=== PATIENT | female | born 1960 | race Caucasian/White ===

== ENCOUNTER → 2020-05-18 07:22 | Outpatient (BNVA) | payer BC, SELFPAY | PROVIDERS: PCP Internal Medicine; Referring Provider Internal Medicine; Visit Provider Internal Medicine Endocrinology, Diabetes & Metabolism | DX: Z76.89 Persons encountering health services in other specified circumstances (principal) ==

== ENCOUNTER 2020-05-23 06:33 | Outpatient (REF) | payer BC, SELFPAY ==
--- NOTE | 2020-05-23 06:56 | CT_ITS ---
EXAMINATION: CT CHEST SCREENING CLINICAL INFORMATION: Lung cancer screening COMPARISON: October 2019 and [address] TECHNIQUE: Multidetector volumetric CT imaging of the chest is performed without contrast using low dose technique. Additional 2D coronal and sagittal reformatted images and axial 3D maximum intensity projection (MIP) images are generated on the CT workstation. This CT examination was performed using dose optimization techniques as appropriate, variously including the following: *Automated exposure control *Adjustment of mA and/or kV according to patient size (this includes techniques or standardized protocols for targeted exams where dose is matched to indication/reason for exam; i.e. extremities or head) *Use of iterative reconstruction technique DLP: 54 mGy-cm FINDINGS: LUNGS: There is a 3 mm heterogeneous or semisolid right apical right upper lobe nodule axial image 68 series 5. There is a 2 mm superior segment right lower lobe nodule axial image 176 series 5. These nodules are stable. There is a 7 x 8 mm superior segment left lower lobe nodule axial image 184 series 5. This does not appear appreciably changed from most recent exam October 2019 however may be minimally increased in size from 6 x 7 mm on March 2019. No new pulmonary nodules are seen. There is no endobronchial or endotracheal lesion. MEDIASTINUM: There is a small posterior mediastinal paraesophageal calcification probably representing a small calcified lymph node. This is definitely new from March 2019 exam and may be more apparent compared to October 2019 exam. The mediastinum is otherwise normal. PLEURA: There is no pleural effusion. No pleural mass or thickening. AXILLA: No lymphadenopathy. UPPER ABDOMEN: The gallbladder has been removed. There are surgical clips adjacent to the spleen. OSSEOUS STRUCTURES: Unremarkable. CT/CT lung screen follow up IMPRESSION: Stable pulmonary nodules from October 2019. ASSESSMENT: Lung-RADS category 2: Benign RECOMMENDATION: Annual low-dose chest CT follow-up recommended.
[2020-05-23 08:13] LABS: Alanine Aminotransferase 10 U/L (0-31); Albumin Level 4.2 g/dL (3.5-5.0); Alkaline Phosphatase 84 U/L (39-117); Anion Gap 13 (12-20); Aspartate Amino Transferase 10 U/L (5-31); Bilirubin Total 0.4 mg/dL (0.0-1.0); Blood Urea Nitrogen 14 mg/dL (9-16); Calcium 8.5 mg/dL (8.4-10.2); Carbon Dioxide 28 mmol/L (22-29); Chloride 104 mmol/L (96-108); Estimated Glomerular Filt Rate > 60; Glucose Fasting 98 mg/dL (60-99); Potassium 4.3 mmol/l (3.3-5.1); Sodium 141 mmol/L (135-145); Total Protein 6.7 g/dL (6.5-8.0)
== END 2020-05-23 06:34 | disposition home or self-care (01) ==
LOC: HO.CT 06:33
PROVIDERS: PCP Internal Medicine; Referring Provider Internal Medicine Endocrinology, Diabetes & Metabolism; Visit Provider Surgery
DX: Z12.2 Encounter for screening for malignant neoplasm of respiratory organs (principal); M81.0 Age-related osteoporosis without current pathological fracture; Z87.891 Personal history of nicotine dependence
CPT/HCPCS: 71250; 80053; 82306

== ENCOUNTER 2020-10-11 08:41 | Outpatient (REF) | payer BC, SELFPAY ==
[2020-10-14 00:36] LABS: HPV mRNA E6/E7 rflx Not Detected (Not Detected)
== END 2020-10-11 08:42 | disposition home or self-care (01) ==
LOC: HO.LAB 08:41
PROVIDERS: PCP Internal Medicine; Visit Provider Advanced Practice Midwife
DX: Z01.419 Encounter for gynecological examination (general) (routine) without abnormal findings (principal); E66.9 Obesity, unspecified; Z79.899 Other long term (current) drug therapy; Z87.891 Personal history of nicotine dependence
CPT/HCPCS: 36415; 87624; 88142

== ENCOUNTER 2020-11-07 09:18 | Outpatient (REF) | payer BC, SELFPAY ==
[2020-11-07 12:14] LABS: Cholesterol 205 mg/dL; HDL Cholesterol 59 mg/dL; LDL Cholesterol Calculated 126 mg/dl; Triglycerides 100 mg/dL
[2020-11-07 12:20] LABS: Alanine Aminotransferase 13 U/L (0-31); Albumin Level 4.2 g/dL (3.5-5.0); Alkaline Phosphatase 75 U/L (39-117); Anion Gap 12 (12-20); Aspartate Amino Transferase 11 U/L (5-31); Bilirubin Total 0.6 mg/dL (0.0-1.0); Blood Urea Nitrogen 14 mg/dL (9-16); Carbon Dioxide 29 mmol/L (22-29); Chloride 105 mmol/L (96-108); Estimated Glomerular Filt Rate > 60; Glucose Fasting 99 mg/dL (60-99); Potassium 4.2 mmol/L (3.3-5.1); Sodium 142 mmol/L (135-145); Total Protein 6.9 g/dL (6.5-8.0)
[2020-11-07 12:28] LABS: Vitamin D 25-OH Total 53.4 ng/mL (>30)
[2020-11-12 17:52] LABS: N-Telopeptide 13 (see note); NTXCreaRU 104 mg/dL (20-275)
== END 2020-11-07 09:19 | disposition home or self-care (01) ==
LOC: HO.HMGCLDS 09:18
PROVIDERS: PCP Internal Medicine; Visit Provider Internal Medicine Endocrinology, Diabetes & Metabolism
DX: Z00.01 Encounter for general adult medical examination with abnormal findings (principal); I10 Essential (primary) hypertension; M81.0 Age-related osteoporosis without current pathological fracture
CPT/HCPCS: 36415; 80053; 80061; 82306; 82523

== ENCOUNTER → 2020-11-16 09:33 | Outpatient (BNVA) | payer BC, SELFPAY | PROVIDERS: PCP Internal Medicine; Visit Provider Internal Medicine Endocrinology, Diabetes & Metabolism ==

== ENCOUNTER 2020-11-22 07:14 | Outpatient (REF) | payer BC, SELFPAY ==
[2020-11-30 12:44] LABS: Dexamethasone 163 ng/dL
== END 2020-11-22 07:15 | disposition home or self-care (01) ==
LOC: HO.HMGCLDS 07:14
PROVIDERS: PCP Internal Medicine; Visit Provider Internal Medicine Endocrinology, Diabetes & Metabolism
DX: D35.02 Benign neoplasm of left adrenal gland (principal)
CPT/HCPCS: 36415; 80299; 82533

== ENCOUNTER 2021-02-23 12:35 | Outpatient (REF) | payer BC, SELFPAY ==
--- NOTE | ~2021-02-23 | MM_ITS ---
EXAMINATION: MM SCREENING DIGITAL BREAST TOMOSYNTHESIS, BILATERAL CLINICAL INFORMATION: Screening. Asymptomatic. The lifetime risk of breast cancer based on the Tyrer-Cuzick Model is 8%. COMPARISON: Mammography: 04/07/2019, 05/18/2015 TECHNIQUE: Digital breast tomosynthesis is performed in both the craniocaudal and mediolateral oblique views along with computer-aided detection (CAD). Synthesized 2D images are generated from the tomosynthesis. FINDINGS: The breasts are almost entirely fatty (ACR BI-RADS breast composition Category a). Background stromal markings are similar to prior studies. There is no significant mass or architectural abnormality or developing density. No abnormal calcifications. The axilla and skin contours are unremarkable. MM/MM tomosynthesis screening BI IMPRESSION: No mammographic evidence of malignancy. ASSESSMENT: BI-RADS 1: Negative RECOMMENDATION: Routine annual mammography screening. This patient's information was entered into a reminder system with a target due date for their next mammogram.
== END 2021-02-23 12:36 | disposition home or self-care (01) ==
LOC: HO.MAMMO 12:35
PROVIDERS: Visit Provider Internal Medicine
DX: Z12.31 Encounter for screening mammogram for malignant neoplasm of breast (principal)
CPT/HCPCS: 77063; 77067

== ENCOUNTER 2021-04-11 08:41 | Outpatient (REF) | payer BC, SELFPAY ==
--- NOTE | ~2021-04-11 | MM_ITS ---
EXAMINATION: BONE DENSITOMETRY CLINICAL INDICATION: Age-related osteoporosis without current pathological fracture. COMPARISON: Baseline BD dated 04/07/2019. TECHNIQUE: Using a [employer] DXA System (software version: 13.1) manufactured by [employer], dual-energy x-ray absorptiometry was performed of the lumbar spine and left hip. The images are of good technical quality. Summary results are attached. FINDINGS: AP SPINE L1-L4: Current: BMD 1.048 g/cm2, Z-score -0.2, T-score -1.1, osteopenia, 1.8% increase from baseline (<5% change is not significant). Baseline: BMD 1.029 g/cm2. LEFT FEMUR, NECK: Current: BMD 0.723 g/cm2, Z-score -1.3, T-score -2.3, osteopenia. Baseline: BMD 0.685 g/cm2. LEFT FEMUR, TOTAL: Current: BMD 0.805 g/cm2, Z-score -0.9, T-score -1.6, osteopenia, 6.9% increase from baseline (<5% change is not significant). Baseline: BMD 0.753 g/cm2. IDENTIFIED RISK FACTORS: Menopause. HISTORY OF FRACTURE: None listed. MEDICATIONS: Calcium supplements or multivitamin, vitamin D, bisphosphonates. MM/XR DEXA axial skeleton IMPRESSION: 1. DIAGNOSIS: Osteopenia based on the lowest T-score value of -2.3 in the femoral neck applying World Health Organization criteria. 2. 10-YEAR FRACTURE RISK PREDICTION, FRAX: Major osteoporotic fracture (clinical spine, forearm, hip or shoulder) 11.0%. Hip fracture 1.8%. 3. Treatment Recommendations: NOF guidelines recommend consideration for treatment in postmenopausal women and men age 50 and older presenting with the following: -A hip or vertebral (clinical or morphometric) fracture. -T-score less than or equal to -2.5 at the femoral neck or spine after appropriate evaluation to exclude secondary causes. -Low bone mass at the hip or spine and a 10-year fracture probability by FRAX of greater than or equal to 3% for hip fracture or greater than or equal to 20% for major osteoporotic fracture based on the [place] adapted WHO algorithm. 4. Other Recommendations: All treatment decisions require clinical judgment and consideration of individual patient factors, including patient preferences, comorbidities, previous drug use, risk factors not captured in the FRAX model (e.g. frailty, falls, vitamin D deficiency, increased bone turnover, interval significant decline in bone density) and possible under or overestimation of fracture risk by FRAX. Additional medical evaluation for secondary cause of low bone mineral density may be appropriate. FUTURE SCAN RECOMMENDATION: People with diagnosed cases of osteoporosis or at high risk for fracture should have regular bone mineral density tests. For patients eligible for Medicare, routine testing is allowed once every 2 years. The testing frequency can be increased to one year for patients who have rapidly progressing disease, those who are receiving or discontinuing medical therapy to restore bone mass, or have additional risk factors.
== END 2021-04-11 08:42 | disposition home or self-care (01) ==
LOC: HO.MAMMO 08:41
PROVIDERS: Visit Provider Internal Medicine
DX: Z13.820 Encounter for screening for osteoporosis (principal); M81.0 Age-related osteoporosis without current pathological fracture; M85.80 Other specified disorders of bone density and structure, unspecified site; Z78.0 Asymptomatic menopausal state; Z79.899 Other long term (current) drug therapy
CPT/HCPCS: 77080

== ENCOUNTER 2021-05-19 11:32 | Emergency (ER) | payer BC, SELFPAY ==
[2021-05-19 11:41] VITALS: BP 170/95; BP 171/94; PULSE 57; PULSE 61; RESP 18; TEMP 36.6; O2SAT 100; O2SAT 98; BMI 30.9
--- NOTE | 2021-05-19 11:53 | ED_ITS ---
HPI - Weakness General Chief complaint: Nausea/Vomiting/Diarrhea Stated complaint: nausea, dizzy Time Seen by Provider: 05/19/21 11:53 Source: patient Mode of arrival: ambulatory Limitations: no limitations History of Present Illness HPI Narrative: Patient with diarrhea from IBS for the past few days, today patient feeling more weak than usual. [place] lightheaded and had a headache. Patient feeling nauseated. MD Complaint: generalized weakness Onset (ago): hour(s) Duration: constant Location: generalized Severity: moderate Related Data Home Medications Medication Instructions Recorded Confirmed flu vacc [id number] 6mos up(PF) ml IM 05/16/20 11/16/20 mecobalamin (vitamin B12) 1,000 1,000 mcg PO DAILY 05/18/20 11/16/20 mcg chewable tablet vitamin E 200 unit capsule 200 unit PO BID 09/12/20 11/16/20 Previous Rx's Medication Instructions Recorded hydrocortisone-pramoxine 2.5 %-1 % See Rx Instructions .ROUTE 09/12/20 (4g) rectal cream .COMPLEX 10 Days #4 g metoprolol succinate 25 mg 25 mg PO BEDTIME #90 tab 10/03/20 tablet,extended release 24 hr alendronate 70 mg tablet 70 mg PO QWEEK 90 Days #13 tab 11/16/20 calcium citrate 315 mg-vitamin D3 2 tab PO BID 90 Days #360 tab 11/16/20 5 mcg (200 unit) tablet dexamethasone 1 mg tablet 1 mg PO ONCE 1 Days #1 tab 11/30/20 dicyclomine 20 mg tablet 20 mg PO BID #60 tab 12/29/20 bupropion HCl 150 mg 24 hr tablet, 150 mg PO QAM #90 tab 01/02/21 extended release lisinopril 10 mg tablet 10 mg PO DAILY #90 tab 03/29/21 ondansetron HCl 4 mg tablet 4 mg PO Q8H PRN #10 tab 05/19/21 (Zofran) Allergies Allergy/AdvReac Type Severity Reaction Status Date / Time morphine [MORPHINE] Allergy Intermediate HIVES, Verified 11/16/20 09:49 itchy Sulfa (Sulfonamide Allergy Intermediate HIVES Verified 11/16/20 09:49 Antibiotics) [SULFA (SULFONAMIDE ANTIBIOTICS)] oxycodone [From PERCODAN] AdvReac Severe DIAPHORESIS, Verified 11/16/20 09:49 PASSED OUT chantix AdvReac Unknown weird Verified 11/16/20 09:49 jim nausea Review of Systems Neurologic: Denies Sensory deficit (Neuro) [facility] Past Medical History Medical History Adenoma of left adrenal gland Barretts esophagus Capsulitis of left foot Degenerative disc disease Depression Essential hypertension External hemorrhoids GERD (gastroesophageal reflux disease) IBS (irritable bowel syndrome) IFG (impaired fasting glucose) Lung nodule < 6cm on CT Corrigan's neuroma of left foot Obesity (BMI 30-39.9) Osteoporosis Vitamin D deficiency Surgical History Abdominal hernia History of excision of pilonidal cyst History of laparoscopic cholecystectomy History of left knee surgery History of sinus surgery Family History Family History Father No problems noted. Mother HTN (hypertension) History of cataract Maternal Grandmother Cervical cancer Maternal Grandfather History of heart attack Brother No problems noted. Brother No problems noted. Brother No problems noted. Sister No problems noted. Social History Social History Advance Directives: Yes Advance Directives Information Provided: Yes Advance Directives on File: No Physical Exam Vital Signs: Vital Signs: Last Vital Signs Temp 98.2 F 05/19/21 16:22 Pulse 64 05/19/21 16:22 Resp 19 05/19/21 16:22 BP 127/62 05/19/21 16:22 Pulse Ox 97 05/19/21 16:22 Body Mass Index 30.9 Const: Other: female moaning with nausea appearing weak Nutritional Appearance: average body habitus Orientation/consciousness: oriented to person and patient oriented x3 Limitations: no limitations HENMT: Head: Yes normal to inspection Ears: external ears normal General nose exam: Normal external nose present Mouth: Normal oral and palatal mucosa present and oropharynx normal Throat: Yes posterior oropharynx normal Eyes: General: appearance normal, both eyes and all related structures Neck: Other: supple Neck: Yes normal visual inspection Chest: Chest palpation & inspection: normal inspection of the chest Resp: Auscultation: clear to auscultation bilaterally Cardio: Jugular venous distension: no JVD Rate: regular rate Rhythm: regular rhythm Heart sounds: S1 normal heart sound present and S2 normal heart sound present GI: Inspection: Yes normal to inspection Palpation (GI): Soft to palpation, nontender and No hepatosplenomegaly present Auscultation: normal bowel sounds : General: Yes no CVA tenderness Back/Spine/Pelvis: Back: no CVA tenderness Skin: General skin exam: no rashes or lesions noted Neuro: General: oriented to person and patient oriented x3 Cranial nerves: Yes CN's II-XII intact bilaterally Motor exam (neuro): 5/5 motor strength present throughout Sensory Exam: No Sensory deficit (Neuro) Extrem: General: Yes normal to inspection Psych: Appearance: grossly normal Course Reevaluation(s) Reevaluation #1: tolerating po, feeling better, will dc on zofran Time: 16:52 MDM - Weakness Lab Data Result diagrams: 05/19/21 12:09 05/19/21 12:44 Labs: Lab Results 05/19/21 05/19/21 05/19/21 Range/Units 12:09 12:44 13:50 WBC 7.0 (4.8-10.8) X10*3/uL RBC 4.41 (4.20-5.50) X10*6/uL Hgb 12.8 (12.0-16.0) g/dl Hct 40.9 (37-47) % MCV 92.7 (80-98) fL MCH 29.0 (27.0-33.0) pg MCHC 31.3 (31.0-35.0) g/dl RDW 19.7 H (11.0-16.0) % Plt Count 197 (160-400) X10*3/uL MPV 11.3 (9.4-12.3) fL Immature Gran % (Auto) 0.3 (0.0-0.4) % Neut % (Auto) 71.1 (45-73) % Lymph % (Auto) 20.9 (20-40) % Hill % (Auto) 5.5 (2-11) % Eos % (Auto) 1.6 (0-4) % Baso % (Auto) 0.6 (0-2) % Lymph # (Auto) 1.5 (1.2-4.9) X10*3/uL [place] # (Auto) 0.4 (0.1-1.2) X10*3/uL Eos # (Auto) 0.1 (0.0-0.4) X10*3/uL Baso # (Auto) 0.0 (0.0-0.2) X10*3/uL Abs Immat Gran (auto) 0.02 (0.00-0.03) X10*3/uL Absolute Neuts (auto) 5.0 (2.0-8.3) X10*3/uL Absolute Nucleated RBC 0.000 (0.0-0.012) X10*3/uL Nucleated RBC % (auto) 0.0 (0.0-0.2) /100WBC Sodium 141 (135-145) mmol/L Potassium 4.1 (3.3-5.1) mmol/L Chloride 110 H (96-108) mmol/L Carbon Dioxide 26 (22-29) mmol/L Anion Gap 9 L (12-20) BUN 11 (9-16) mg/dL Creatinine 0.72 (0.5-1.4) mg/dL Estim Creat Clear Calc 83.7 Estimated GFR > 60 Random Glucose 109 (60-115) mg/dL Calcium 8.1 L D (8.4-10.2) mg/dL Total Bilirubin 0.3 (0.0-1.0) mg/dL Direct Bilirubin < 0.2 (0.0-0.5) mg/dL AST 14 (5-31) U/L ALT 15 (0-31) U/L Alkaline Phosphatase 74 (39-117) U/L Total Protein 6.3 L (6.5-8.0) g/dL Albumin 3.9 (3.5-5.0) g/dL Lipase 9 (8-78) U/L Urine Color YELLOW Urine Appearance HAZY Urine pH 6.5 (5.0-8.0) Ur Specific [place] 1.015 (1.005-1.025) Urine Protein NEG (NEG-TRACE) MG/DL Urine Glucose (UA) NEG (NEG) MG/DL Urine Ketones NEG (NEG) MG/DL Urine Blood NEG (NEG) Urine Nitrite NEG (NEG) Ur Leukocyte Esterase 1+ H (NEG) Urine RBC 1-4 (0) /HPF Urine WBC 5-9 H (0-4) /HPF Ur Squamous Epith Cells 1+ /LPF Urine Bacteria 1+ /LPF Urine Mucus TRACE /LPF Discharge Plan Discharge Clinical Impression: IBS (irritable bowel syndrome) Qualifiers: Irritable bowel syndrome type: with diarrhea Qualified Code(s): K58.0 - Irritable bowel syndrome with diarrhea Vomiting Qualifiers: Vomiting type: unspecified Vomiting Intractability: non-intractable Nausea presence: with nausea Qualified Code(s): R11.2 - Nausea with vomiting, unspecified Patient Disposition: Home, Self-Care Instructions: Irritable Bowel Syndrome (ED), Acute Nausea and Vomiting (ED) Prescriptions: New ondansetron HCl [Zofran] 4 mg tablet 4 mg PO Q8H PRN (Reason: nausea and vomiting) Qty: 10 RF: 0 No Action metoprolol succinate 25 mg tablet extended release 24 hr 25 mg PO BEDTIME Qty: 90 RF: 2 dexamethasone 1 mg tablet 1 mg PO ONCE 1 Days Qty: 1 RF: 0 dicyclomine 20 mg tablet 20 mg PO BID Qty: 60 RF: 2 bupropion HCl 150 mg tablet extended release 24 hr 150 mg PO QAM Qty: 90 RF: 1 lisinopril 10 mg tablet 10 mg PO DAILY Qty: 90 RF: 2 Fluzone Quad 3400-2712 (PF) 60 mcg (15 mcg x 4)/0.5 mL syringe IM RF: 0 vitamin E 200 unit capsule 200 unit PO BID RF: 0 hydrocortisone-pramoxine 2.5-1 % (4g) cream See Rx Instructions .ROUTE .COMPLEX 10 Days Qty: 4 RF: 1 mecobalamin (vitamin B12) 1,000 mcg tablet,chewable 1,000 mcg PO DAILY RF: 0 alendronate 70 mg tablet 70 mg PO QWEEK 90 Days Qty: 13 RF: 3 calcium citrate-vitamin D3 315 mg-5 mcg (200 unit) tablet 2 tab PO BID 90 Days Qty: 360 RF: 3 Referrals: Lizzy Cruz MD [Primary Care Provider] - 5 days
[2021-05-19] MEDS: 0.9 % Sodium Chloride 1,000 ML 999 ML IVCONT ×2 (12:09→13:38)
[2021-05-19] MEDS: Pantoprazole Sodium 40 MG/10 ML VIAL IVPUSH (12:11)
[2021-05-19 12:16] LABS: MANUAL DIFF FLAG NO
[2021-05-19 12:18] LABS: Basophils Percent Auto 0.6 % (0-2); Eosinophils Absolute Auto 0.1 X10*3/uL (0.0-0.4); Eosinophils Percent Auto 1.6 % (0-4); Hematocrit 40.9 % (37-47); Hemoglobin 12.8 g/dl (12.0-16.0); Imm Gran Abs Auto 0.02 X10*3/uL (0.00-0.03); Imm Gran Pct Auto 0.3 % (0.0-0.4); Lymphocytes Absolute Auto 1.5 X10*3/uL (1.2-4.9); Lymphocytes Percent Auto 20.9 % (20-40); Mean Corpuscular HGB Conc 31.3 g/dl (31.0-35.0); Mean Corpuscular Volume 92.7 fL (80-98); Mean Platelet Volume 11.3 fL (9.4-12.3); Monocytes Absolute Auto 0.4 X10*3/uL (0.1-1.2); Monocytes Percent Auto 5.5 % (2-11); Neutrophils Percent Auto 71.1 % (45-73); Platelet Count 197 X10*3/uL (160-400); Red Blood Count 4.41 X10*6/uL (4.20-5.50); Red Cell Distribution Width 19.7 % (11.0-16.0)
[2021-05-19 13:16] LABS: Alanine Aminotransferase 15 U/L (0-31); Albumin Level 3.9 g/dL (3.5-5.0); Alkaline Phosphatase 74 U/L (39-117); Anion Gap 9 (12-20); Aspartate Amino Transferase 14 U/L (5-31); Bilirubin Direct < 0.2 mg/dL (0.0-0.5); Bilirubin Total 0.3 mg/dL (0.0-1.0); Blood Urea Nitrogen 11 mg/dL (9-16); Calcium 8.1 mg/dL (8.4-10.2); Carbon Dioxide 26 mmol/L (22-29); Chloride 110 mmol/L (96-108); Creatinine Clr Calc Pharmacy 83.7; Estimated Glomerular Filt Rate > 60; Glucose Random 109 mg/dL (60-115); Lipase 9 U/L (8-78); Potassium 4.1 mmol/L (3.3-5.1); Sodium 141 mmol/L (135-145); Total Protein 6.3 g/dL (6.5-8.0)
[2021-05-19 13:51] VITALS: BP 155/63; PULSE 60; RESP 19; O2SAT 96
[2021-05-19 14:05] LABS: Appearance Urine HAZY; Color Urine YELLOW; Glucose Urine UA NEG (NEG); Leukocyte Esterase Urine 1+ (NEG); Nitrite Urine NEG (NEG); PH 6.5 (5.0-8.0); Specific Gravity - Urine 1.015 (1.005-1.025); UACC Culture Trigger YES; Urine Blood NEG (NEG); Urine Ketones NEG (NEG); Urine Protein NEG (NEG-TRACE)
[2021-05-19 14:20] LABS: Bacteria Urine 1+ /LPF; Mucus Urine TRACE /LPF; Squamous Epithelial Cell Urine 1+ /LPF
[2021-05-19 16:22] VITALS: BP 127/62; PULSE 64; RESP 19; TEMP 36.8; O2SAT 97
== END 2021-05-19 17:17 | disposition home or self-care (01) ==
PROVIDERS: Emergency Provider Emergency Medicine; PCP Internal Medicine
DX: K58.0 Irritable bowel syndrome with diarrhea (principal); R11.2 Nausea with vomiting, unspecified; I10 Essential (primary) hypertension
CPT/HCPCS: 36415; 80048; 80076; 81001; 83690; 85025; 87086; 96361; 96374; 96375; 99283; 99284; J2550

== ENCOUNTER 2022-03-11 22:17 | Outpatient (REF) | payer BC, SELFPAY ==
[2022-03-18 19:51] LABS: Saliva Cortisol <0.03 mcg/dL
== END 2022-03-11 22:18 | disposition home or self-care (01) ==
LOC: HO.LNP 22:17
PROVIDERS: Visit Provider Internal Medicine Endocrinology, Diabetes & Metabolism
DX: D35.02 Benign neoplasm of left adrenal gland (principal)
CPT/HCPCS: 82530

== ENCOUNTER 2022-03-12 06:29 | Outpatient (REF) | payer BC, SELFPAY ==
[2022-03-13 15:22] LABS: Adrenocorticotropic Hormone 20 pg/mL (6-50)
[2022-03-16 13:12] LABS: Metanephrine, Free <25 pg/mL (<=57); Normetanephrines, Free 73 pg/mL (<=148); Total Metanephrine, Free 73 pg/mL (<=205)
== END 2022-03-12 06:30 | disposition home or self-care (01) ==
LOC: HO.LAB 06:29
PROVIDERS: PCP Internal Medicine; Visit Provider Internal Medicine Endocrinology, Diabetes & Metabolism
DX: D35.02 Benign neoplasm of left adrenal gland (principal)
CPT/HCPCS: 82024; 82088; 83835; 84244

== ENCOUNTER → 2022-06-19 12:12 | Outpatient (BNVA) | payer BC, SELFPAY | PROVIDERS: PCP Internal Medicine; Visit Provider Dietitian, Registered | DX: E66.9 Obesity, unspecified (principal) | CPT/HCPCS: 97802 ==

== ENCOUNTER 2022-07-09 14:28 | Outpatient (REF) | payer BC, SELFPAY | END 2022-07-09 14:29 | disposition home or self-care (01) | LOC: HO.HMGCX 14:28 | PROVIDERS: PCP Internal Medicine; Visit Provider Internal Medicine | DX: J32.0 Chronic maxillary sinusitis (principal) | CPT/HCPCS: 70220 ==

== ENCOUNTER 2022-10-08 12:03 | Outpatient (REF) | payer BC, SELFPAY ==
--- NOTE | ~2022-10-08 | MM_ITS ---
EXAMINATION: MM SCREENING DIGITAL BREAST TOMOSYNTHESIS, BILATERAL CLINICAL INFORMATION: Screening. Asymptomatic. The lifetime risk of breast cancer based on the Tyrer-Cuzick Model is 7%. COMPARISON: Mammography: 02/23/2021, 04/07/2019, 05/10/2015 TECHNIQUE: Digital breast tomosynthesis is performed in both the craniocaudal and mediolateral oblique views along with computer-aided detection (CAD). Synthesized 2D images are generated from the tomosynthesis. FINDINGS: The breasts are almost entirely fatty (ACR BI-RADS breast composition Category a). There are no significant masses, abnormal calcifications, or other abnormalities. The stromal markings are normal. No developing density or architectural abnormality. The axilla and skin contours are unremarkable. MM/MM tomosynthesis screening BI IMPRESSION: No mammographic evidence of malignancy. ASSESSMENT: BI-RADS 1: Negative RECOMMENDATION: Routine annual mammography screening. This patient's information was entered into a reminder system with a target due date for their next mammogram.
== END 2022-10-08 12:04 | disposition home or self-care (01) ==
LOC: HO.MAMMO 12:03
PROVIDERS: PCP Internal Medicine; Visit Provider Internal Medicine
DX: Z12.31 Encounter for screening mammogram for malignant neoplasm of breast (principal)
CPT/HCPCS: 77063; 77067

== ENCOUNTER 2023-03-12 12:24 | Outpatient (AMB) | payer BC, SELFPAY ==
--- NOTE | 2023-03-12 12:34 | A.OFFPC_ITS ---
Vital Signs 03/12/23 12:35 Height 5 ft 3.5 in BMI Reason not done Patient refused/unable BP 130/74 Blood Pressure Location Rt brachial Position Sitting Pulse 68 Pulse Source Pulse Oximeter Pulse Oximetry (%) 98 Intake Visit Reasons: Annual PE Intake Note: pt is here for physical exam Allergies morphine [MORPHINE] Allergy (Intermediate, Verified 07/02/24 08:58) HIVES, itchy Sulfa (Sulfonamide Antibiotics) [SULFA (SULFONAMIDE ANTIBIOTICS)] Allergy (Intermediate, Verified 07/02/24 08:58) HIVES oxycodone [From PERCODAN] Adverse Reaction (Severe, Verified 07/02/24 08:58) DIAPHORESIS, PASSED OUT chantix Adverse Reaction (Unknown, Verified 07/02/24 08:58) edna fernandez nausea adhesive tape Adverse Reaction (Verified 07/02/24 08:58) skin tear Medication List - Last Reconciled 03/12/23 by Lizzy Cruz MD calcium citrate-vitamin D3 315 mg-5 mcg (200 unit) 2 tabs PO BID 90 days hydrocortisone-pramoxine 2.5-1 % (4g) Apply to rectal area once a day; 10 days lisinopril 10 mg PO DAILY mecobalamin (vitamin B12) 1,000 mcg PO DAILY metoprolol succinate ER 25 mg PO BEDTIME tizanidine 4 mg PO .QD PRN Tobacco use date assessed: 03/12/23 HPI Annual PE HPI Details 62-year-old lady with hypertension, oste oporosis, here today for physical exam. She is up-to-date with her screening mammogram done earlier this year, and had a bone density scan done ordered by Dr. Walker in 2020. Currently taking only calcium and plus vitamin-D 3 supplements . Blood pressure stable controlled on lisinopril and metoprolol.. Overdue for her cervical cancer screening but patient declines exam or getting Pap smears [facility] Medical History (Updated 07/05/24 @ 17:24 by Lizzy Cruz MD) Cervical cancer screening declined Allergic rhinitis Bilateral ankle pain History of ETT HTN (hypertension) Osteopenia Arthritis Hx of osteoporosis Bilateral temporomandibular joint disorder Dysfunction of left eustachian tube Intermittent lightheadedness Tinnitus of left ear Maxillary sinusitis Chronic pain in left foot External hemorrhoids Capsulitis of left foot Corrigan's neuroma of left foot Obesity (BMI 30-39.9) Vitamin D deficiency IFG (impaired fasting glucose) Adenoma of left adrenal gland Degenerative disc disease Barretts esophagus Lung nodule < 6cm on CT GERD (gastroesophageal reflux disease) IBS (irritable bowel syndrome) Essential hypertension Surgical History History of esophagogastroduodenoscopy (EGD) H/O colonoscopy Hx of foot surgery History of repair of hiatal hernia History of laparoscopic cholecystectomy History of sinus surgery History of excision of pilonidal cyst History of left knee surgery Abdominal hernia Family History Father No problems noted. Mother HTN (hypertension) History of cataract Maternal Grandmother Cervical cancer Maternal Grandfather History of heart attack Brother No problems noted. Brother No problems noted. Brother No problems noted. Sister No problems noted. Other Mental health disorder Substance use disorder Social History Housing: House Patient Tobacco Use Status: Former Tobacco user Years Smoked: 40 years e-Cigarette/Vaping Use: Never Used Current occupational status: unemployed Cognitive needs: No Hearing needs: No Vision needs: Yes Female Reproductive History Menstrual Age of Menarche: 9 Date of Mammogram: 10/08/22 Questionnaire PHQ-9 Over the last 2 weeks, how often have you been bothered by any of the following problems? 1. Little interest or pleasure in doing things: not at all 2. Feeling down, depressed, or hopeless: not at all 3. Trouble falling or staying asleep, or sleeping too much: not at all 4. Feeling tired or having little energy: not at all 5. Poor appetite or overeating: not at all 6. Feeling bad about yourself - or that you are a failure or have let yourself or your family down: not at all 7. Trouble concentrating on things, such as reading the newspaper or watching television: not at all 8. Moving or speaking so slowly that other people could have noticed. Or the opposite - being so fidgety or restless that you have been moving around a lot more than usual: not at all 9. Thoughts that you would be better off or of hurting yourself in some way: not at all Total score: 0 Depression Screening Interpretation: Negative 90314 - PHQ-9 Billing: Yes Source: Developed by Drs. Enoc Benson, Cassi Donnelly, Gurpreet Flores and colleagues, with an educational ralf from [employer]. Thrive Questionnaire Date Thrive assessed: 03/12/23 I am a: Patient What is your living situation today?: I have a steady place to live Within the past 12 months, did the food you bought not last and you didn't have the money to get more?: Never true Within the past 12 months, did you worry whether your food would run out before you got money to buy more?: Never true Do you have trouble paying for medicines?: No Do you have trouble getting transportation to medical appointments?: No Do you have trouble paying your heating and electricity bill?: No Do you have trouble taking care of your child, family member or friend?: No Do you have trouble with day-to-day activities such as bathing, preparing meals, shopping, managing finances, etc.?: No Are you currently unemployed and looking for a job?: I choose not to answer this question Are you interested in more education?: No RAFA-7 AMB Questionnaire RAFA-7 Date RAFA - 7 assessed: 03/12/23 Feeling nervous, anxious, or on edge: 0 = Not at all Not being able to stop or control worryin = Not at all Worrying too much about different things: 0 = Not at all Trouble relaxin = Not at all Being so restless that it is hard to sit still: 0 = Not at all Becoming easily annoyed or irritable: 0 = Not at all Feeling afraid as if something awful might happen: 0 = Not at all Total RAFA-7 score (0-4 normal; 5-9 mild; 10-14 moderate; 15-21 severe): 0 Source: Developed by Drs. Enoc Benson, Cassi Donnelly, Gurpreet Flores and colleagues, with an educational ralf from [employer]. RAFA-7 Assessment Billing RAFA-7 Assessment Tool: RAFA-7 Assessment 99891 Review of Systems Const Denies body aches, Denies fatigue, Denies fever(s), Denies headache(s) and Denies weakness Eyes Denies change in vision, Denies eye discharge and Denies itchy eyes ENT Denies dizziness, Denies headache(s) and Denies nasal congestion Card Denies chest pain, Denies lightheadedness, Denies palpitations and Denies dyspnea Resp Denies chest congestion, Denies cough, Denies dyspnea and Denies wheezing GI Denies abdominal pain, Denies change in bowel habits and Denies heartburn Denies hematuria, Denies urinary frequency, Denies dysuria and Denies urinary urgency Musc Reports as per HPI Skin/Breast Denies breast pain, Denies breast mass, Denies lesions and Denies rash Neuro Denies dizziness, Denies headache(s) and Denies weakness Psych Reports no additional complaints Endo Denies fatigue, Denies polydipsia, Denies polyuria and Denies palpitations Chalo/Lymph Denies easy bruising Aller/Immun Denies itchy eyes, Denies seasonal rhinorrhea and Denies wheezing Physical exam (Primary Care) Vital Signs: Last Vital Signs Pulse 68 03/12/23 12:35 BP 130/74 03/12/23 12:35 Pulse Ox 98 03/12/23 12:35 Tobacco/Smoking Status: Tobacco use Status Tobacco use date assessed 03/12/23 03/12/23 12:39 Patient Tobacco Use Status Former Tobacco user (quit 2. 03/12/23 12:36 5 years ago ) e-Cigarette/Vaping Use Never Used 03/12/23 12:36 PHQ-9: PHQ-9 Score PHQ-9: Total score 0 03/12/23 13:06 Depression Screening Interpretation: Negative Thrive Assessment: Date of Thrive Assessment Date Thrive assessed 07/13/21 03/12/23 12:36 Const Other: Alert oriented x3, no acute distress noted, ambulatory with limping gait Orientation/consciousness: patient oriented x3 HENMT Head: Yes normocephalic Ears: hearing grossly normal bilaterally, external ears normal, TM's normal bilaterally and EAC's normal General nose exam: Normal external nose present Face and sinus: Yes face symmetric Mouth: Normal oral and palatal mucosa present, oropharynx normal and moist mucous membranes Eyes General: appearance normal, both eyes and all related structures Neck Neck: Yes full ROM, Yes no lymphadenopathy and Yes supple Chest Breast/axilla palpation: normal palpation of the breasts Resp Auscultation: clear to auscultation bilaterally Cardio Rate: regular rate Rhythm: regular rhythm Heart sounds: S1 normal heart sound present and S2 normal heart sound present GI Palpation (GI): Soft to palpation, nontender, no guarding and no masses Auscultation: normal bowel sounds General: Yes no CVA tenderness and Yes deferred Back/Spine/Pelvis Back: no CVA tenderness and No back tenderness Skin General skin exam: no rashes or lesions noted Neuro General: patient oriented x3, tone normal, moves all extremities, Normal light touch and pain sensation and no focal motor deficits Extrem Other: Decreased range of motion left foot, bilateral ankle pain, worse with extended walking or standing General: Yes no joint enlargement, Yes no clubbing, cyanosis or edema and Yes no calf tenderness Psych Appearance: grossly normal and well kempt Mental Status: mental status grossly normal Speech and movement: Normal speech and movement present Affect: normal affect Thought process: Normal thought process present Thought content: Normal thought content present Coding Level of Care Code Est Pt Prev Care 40-64y(71273) Diagnoses Vitamin D deficiency E55.9 Essential hypertension I10 Age-related osteoporosis without current pathological fracture M81.0 Osteoporosis type: age-related Presence of current pathological fracture: without current pathological fracture Adenoma of left adrenal gland D35.02 Obesity (BMI 30-39.9) E66.9 Annual visit for general adult medical examination with abnormal findings Z00.01 Additional Codes RAFA-7 Assessment Billing - RAFA-7 Assessment Tool: RAFA-7 Assessment 61330 ([id number])
[2023-03-12 12:35] VITALS: BP 130/74; PULSE 68; O2SAT 98
== END 2023-03-12 13:29 | disposition home or self-care (01) ==
PROVIDERS: PCP Internal Medicine; Visit Provider Internal Medicine
DX: E55.9 Vitamin D deficiency, unspecified (principal); I10 Essential (primary) hypertension; M81.0 Age-related osteoporosis without current pathological fracture; D35.02 Benign neoplasm of left adrenal gland; E66.9 Obesity, unspecified; Z00.01 Encounter for general adult medical examination with abnormal findings
CPT/HCPCS: 99499

== ENCOUNTER 2023-03-13 08:04 | Outpatient (REF) | payer BC, SELFPAY ==
[2023-03-13 12:19] LABS: Alanine Aminotransferase 15 U/L (0-31); Anion Gap 11 (12-20); Aspartate Amino Transferase 12 U/L (5-31); Blood Urea Nitrogen 12 mg/dL (9-16); Calcium 9.5 mg/dL (8.4-10.2); Carbon Dioxide 28 mmol/L (22-29); Chloride 107 mmol/L (96-108); Cholesterol 177 mg/dL (<200); Estimated Glomerular Filt Rate > 60; Glucose Fasting 97 mg/dL (60-99); HDL Cholesterol 55 mg/dL (>40); LDL Cholesterol Calculated 105 mg/dL (<100); Potassium 4.1 mmol/L (3.3-5.1); Sodium 142 mmol/L (135-145); Triglycerides 87 mg/dL (<150); Vitamin D 25-OH Total 45.5 ng/mL (>30)
== END 2023-03-13 08:05 | disposition home or self-care (01) ==
LOC: HO.HMGCLDS 08:04
PROVIDERS: PCP Internal Medicine; Visit Provider Internal Medicine
DX: E55.9 Vitamin D deficiency, unspecified (principal); I10 Essential (primary) hypertension; K21.9 Gastro-esophageal reflux disease without esophagitis; M81.0 Age-related osteoporosis without current pathological fracture; D35.02 Benign neoplasm of left adrenal gland; E66.9 Obesity, unspecified; Z00.01 Encounter for general adult medical examination with abnormal findings; Z87.39 Personal history of other diseases of the musculoskeletal system and connective tissue
CPT/HCPCS: 36415; 80048; 80061; 82306; 84450; 84460

== ENCOUNTER 2023-03-21 09:48 | Outpatient (AMB) | payer BC, SELFPAY ==
--- NOTE | 2023-03-21 09:50 | MHC.OFFVIS ---
Intake Vital Signs 03/21/23 09:55 Height 5 ft 5.3 in BP 120/88 Blood Pressure Location Lt brachial Position Sitting Pulse 61 Pulse Source Pulse Oximeter Intake Visit Reasons: f/u adrenal adenoma Intake Note: Patient present for adrenal adenoma follow up visit. Outside Property Agent Required: No Accompanied by: Self / Same As Patient Allergies morphine [MORPHINE] Allergy (Intermediate, Verified 03/12/23 12:55) HIVES, itchy Sulfa (Sulfonamide Antibiotics) [SULFA (SULFONAMIDE ANTIBIOTICS)] Allergy (Intermediate, Verified 03/12/23 12:55) HIVES oxycodone [From PERCODAN] Adverse Reaction (Severe, Verified 03/12/23 12:55) DIAPHORESIS, PASSED OUT chantix Adverse Reaction (Unknown, Verified 03/12/23 12:55) weird drreams nausea adhesive tape Adverse Reaction (Verified 03/12/23 12:55) skin tear HPI HPI Comments History of Present Illness Details 62 yo female , today for follow-up visit, for evaluation of osteoporosis. and adrnal mass She has past medical history of lower back pain, vitamin-D deficiency, Pre diabetes, Depression, obesity. She denies prior fractures, positive GERD not on PPIs, positive FH of osteoporosis in her mother, she denies nephrolithiasis, she denies steroids used, positive smoker, she quit on February 2019. She denies anti seizures medications. She was on PPIs for a long period of time but she has not been on PPIs for maybe 20 years. She has negative History of head or neck irradiation. She has been taking alendronate 70 mg once a week with no problems since last visit. She has a good method of administration she is 100% adherent to therapy. Calcium intake: Calcium citrate 600 plus vitamin-D 800 twice a day. She is still not able to exercise due to leg pain. She is still limping. 04/07/19 dexa scan AP SPINE L1-L4: BMD 1.029 g/cm2, Z-score -0.3, T-score -1.3, osteopenia. LEFT FEMUR, NECK: BMD 0.685 g/cm2, Z-score -1.5, T-score -2.5, osteoporosis. LEFT FEMUR, TOTAL: BMD 0.753 g/cm2, Z-score -1.3, T-score -2.0, osteopenia. AP SPINE L1-L4: Current: BMD 1.048 g/cm2, Z-score -0.2, T-score -1.1, osteopenia, 1.8% increase from baseline (<5% change is not significant). Baseline: BMD 1.029 g/cm2. LEFT FEMUR, NECK: Current: BMD 0.723 g/cm2, Z-score -1.3, T-score -2.3, osteopenia. Baseline: BMD 0.685 g/cm2. LEFT FEMUR, TOTAL: Current: BMD 0.805 g/cm2, Z-score -0.9, T-score -1.6, osteopenia, 6.9% increase from baseline (<5% corona 03/31/2019 Hemoglobin 13.9 grams/deciliter Hematocrit 41.1% Creatinine 0.80 mg/dL GFR more than 60 mL/minute Potassium 4.2 millimole per L Sodium 144 millimole per L Calcium 9.1 mg/dL Albumin 4.4 g/dL Alkaline phosphatase 82 units/liter Vitamin-D 16.7 ng/dL TSH 1.20 mIU/mL \ 04/03/2019 There is a 1 cm low-attenuation left adrenal lesion axial image 51 series 2. Hounsfield units measure -30. This is stable from previous exam from 2013 and consistent with a benign lipid rich adenoma. Laboratory Tests 02/19/20 11/07/20 11/07/20 08:05 08:30 09:25 Sodium 142 Potassium 4.2 Creatinine 0.81 Estimated GFR > 60 Fasting Glucose 99 Calcium 9.0 Alkaline Phosphata se 75 Albumin 4.2 N-Telopeptide X-li nked 13 25-OH Vitamin D To raji 53.4 Cortisol 1.8 ACTH <5 L Dexamethasone SEE NOTE Laboratory Tests 03/31/19 07/02/19 02/03/20 09:18 12:40 09:00 Creatinine 0.76 Est GFR (Non-Af Am er) > 60 Calcium 9.0 D Alkaline Phosphata se 82 Total Protein 6.6 Albumin 4.2 N-Telopeptide X-li nked 25-OH Vitamin D To raji 29.4 TSH 3rd Generation 1.20 PTH Intact 38 Cortisol ACTH 02/19/20 02/19/20 07:53 08:05 Creatinine Est GFR (Non-Af Am er) Calcium Alkaline Phosphata se Total Protein Albumin N-Telopeptide X-li nked 23 25-OH Vitamin D To raji TSH 3rd Generation PTH Intact Cortisol 1.8 ACTH <5 L Laboratory Tests 07/02/19 07/02/19 02/03/20 12:40 12:40 09:00 Random Glucose 99 Fasting Glucose 93 Estimat Average Gl ucose 111 Hemoglobin A1c 5.5 No sx of Dionisio's or pheo PFSH Medical History (Updated 03/12/23 @ 13:18 by Lizzy Cruz MD) Adenoma of left adrenal gland Barretts esophagus Bilateral temporomandibular joint disorder Capsulitis of left foot Chronic pain in left foot Degenerative disc disease Dysfunction of left eustachian tube Essential hypertension External hemorrhoids GERD (gastroesophageal reflux disease) Hx of osteoporosis IBS (irritable bowel syndrome) IFG (impaired fasting glucose) Intermittent lightheadedness Lung nodule < 6cm on CT Maxillary sinusitis Corrigan's neuroma of left foot Obesity (BMI 30-39.9) Tinnitus of left ear Vitamin D deficiency Surgical History Abdominal hernia History of excision of pilonidal cyst History of laparoscopic cholecystectomy History of left knee surgery History of sinus surgery Family History Father No problems noted. Mother HTN (hypertension) History of cataract Maternal Grandmother Cervical cancer Maternal Grandfather History of heart attack Brother No problems noted. Brother No problems noted. Brother No problems noted. Sister No problems noted. Other Mental health disorder Substance use disorder Social History Housing: House Patient Tobacco Use Status: Former Tobacco user (quit 2.5 years ago ) Years Smoked: 40 years e-Cigarette/Vaping Use: Never Used Current occupational status: unemployed Cognitive needs: No Hearing needs: No Vision needs: Yes Female Reproductive History Menstrual Age of Menarche: 9 Assessment & Plan Assessment & Plan (1) Adenoma of left adrenal gland: Code(s): D35.02 - Benign neoplasm of left adrenal gland Plan: History of left adrenal adenoma a very low-density with imaging consistent with a benign adenoma. Workup for secretion was negative except for a mildly elevated cortisol after dexamethasone suppression. Normal midnight salivary cortisol has ruled out [place] syndrome Plan is for repeat 1 mg dex suppression test with dex levels and if abnl will repeat midnight salivary cortisol (2) Osteoporosis: Code(s): M81.0 - Age-related osteoporosis without current pathological fracture Qualifiers: Osteoporosis type: age-related Presence of current pathological fracture: without current pathological fracture Qualified Code(s): M81.0 - Age-related osteoporosis without current pathological fracture Plan: This is a 61-year-old white female with a history of osteoporosis currently not on alendronate, calcium and vitamin-D with recent improvement in DEXA bone density showing low bone mass Would continue with calcium and vitamin-D supplementation and continue to hold the alendronate. Recheck DEXA bone density of hip and spine Orders: Orders Cortisol Random Today D35.02 - Benign neoplasm of left adrenal gland Dexamethasone Today D35.02 - Benign neoplasm of left adrenal gland XR DEXA axial skeleton Today Z87.39 - Personal history of other diseases of the musculoskeletal system and connective tissue Medications: New dexamethasone 1 mg PO ONCE 1 tab 0RF Coding Level of Care Code Est Pt Level 3 (33593) Diagnoses Adenoma of left adrenal gland D35.02 Osteoporosis M81.0 Osteoporosis type: age-related Presence of current pathological fracture: without current pathological fracture
[2023-03-21 09:55] VITALS: BP 120/88; PULSE 61
== END 2023-03-21 10:15 | disposition home or self-care (01) ==
PROVIDERS: PCP Internal Medicine; Visit Provider Internal Medicine Endocrinology, Diabetes & Metabolism
DX: D35.02 Benign neoplasm of left adrenal gland (principal); M81.0 Age-related osteoporosis without current pathological fracture
CPT/HCPCS: 99213

== ENCOUNTER → 2023-03-21 09:48 | Outpatient (BNVA) | payer BC, SELFPAY | PROVIDERS: Visit Provider Internal Medicine Endocrinology, Diabetes & Metabolism ==

== ENCOUNTER 2023-03-23 07:49 | Outpatient (REF) | payer BC, SELFPAY ==
[2023-04-03 13:49] LABS: Dexamethasone 439 ng/dL
== END 2023-03-23 07:50 | disposition home or self-care (01) ==
LOC: HO.HMGCLDS 07:49
PROVIDERS: PCP Internal Medicine; Visit Provider Internal Medicine Endocrinology, Diabetes & Metabolism
DX: D35.02 Benign neoplasm of left adrenal gland (principal)
CPT/HCPCS: 36415; 80299; 82533

== ENCOUNTER 2023-03-28 | Outpatient (REF) | payer BC, SELFPAY ==
[2023-04-05 07:58] LABS: Saliva Cortisol 0.06
== END 2023-03-28 00:01 | disposition home or self-care (01) ==
LOC: HO.HMGCLDS
PROVIDERS: Visit Provider Internal Medicine Endocrinology, Diabetes & Metabolism
DX: D35.02 Benign neoplasm of left adrenal gland (principal)
CPT/HCPCS: 82530

== ENCOUNTER 2023-04-25 13:39 | Outpatient (REF) | payer BC, SELFPAY | END 2023-04-25 13:40 | disposition home or self-care (01) | LOC: HO.MAMMO 13:39 | PROVIDERS: PCP Internal Medicine; Visit Provider Internal Medicine Endocrinology, Diabetes & Metabolism | DX: Z13.820 Encounter for screening for osteoporosis (principal); Z87.39 Personal history of other diseases of the musculoskeletal system and connective tissue; Z78.0 Asymptomatic menopausal state | CPT/HCPCS: 77080 ==

== ENCOUNTER 2023-12-06 10:11 | Day surgery (SDC) | payer MEDICARE, BC, SELFPAY ==
[2023-12-04 13:51] VITALS: BMI 34.5
--- NOTE | 2023-12-05 10:53 | HO.ANESPROP2 ---
Documented by User: Chey Loyola NP 12/05/23 10:55 HPI - Anesthesia Eval Consult details Narrative: 63yo F for Colonoscopy PMFSH Active Problems Active Problems: All Active Problems Increased abdominal girth (Acute) Screening for malignant neoplasm of cervix (Acute) Well woman exam with routine gynecological exam (Acute) Hx of osteoporosis (Acute) Bilateral temporomandibular joint disorder (Acute) Dysfunction of left eustachian tube (Acute) Intermittent lightheadedness (Acute) Tinnitus of left ear (Acute) Chronic pain in left foot (Acute) External hemorrhoids (Acute) Capsulitis of left foot (Acute) Corrigan's neuroma of left foot (Acute) Obesity (BMI 30-39.9) (Acute) Vitamin D deficiency (Acute) IFG (impaired fasting glucose) (Acute) Adenoma of left adrenal gland (Acute) Degenerative disc disease (Acute) Barretts esophagus (Acute) Lung nodule < 6cm on CT (Acute) GERD (gastroesophageal reflux disease) (Acute) IBS (irritable bowel syndrome) (Acute) Essential hypertension (Acute) Past Medical History Medical History (Updated 12/04/23 @ 13:45 by Gogo Fernandez RN) History of ETT HTN (hypertension) Osteopenia Arthritis Hx of osteoporosis Bilateral temporomandibular joint disorder Dysfunction of left eustachian tube Intermittent lightheadedness Tinnitus of left ear Maxillary sinusitis Chronic pain in left foot External hemorrhoids Capsulitis of left foot Corrigan's neuroma of left foot Obesity (BMI 30-39.9) Vitamin D deficiency IFG (impaired fasting glucose) Adenoma of left adrenal gland Degenerative disc disease Barretts esophagus Lung nodule < 6cm on CT GERD (gastroesophageal reflux disease) IBS (irritable bowel syndrome) Essential hypertension Family History Family History Father No problems noted. Mother HTN (hypertension) History of cataract Maternal Grandmother Cervical cancer Maternal Grandfather History of heart attack Brother No problems noted. Brother No problems noted. Brother No problems noted. Sister No problems noted. Other Mental health disorder Substance use disorder Surgical History Surgical History (Updated 12/04/23 @ 13:45 by Gogo Fernandez RN) History of esophagogastroduodenoscopy (EGD) H/O colonoscopy Hx of foot surgery History of repair of hiatal hernia History of laparoscopic cholecystectomy History of sinus surgery History of excision of pilonidal cyst History of left knee surgery Abdominal hernia Social History Social History Housing: House Patient Tobacco Use Status: Former Tobacco user Years Smoked: 40 years e-Cigarette/Vaping Use: Never Used Are you DNR?: No Advance Directives: No Advance Directives Information Provided: No Nutrition Risks: No Nutritional Risk Current occupational status: unemployed Cognitive needs: No Hearing needs: No Vision needs: Yes Meds Allergies Allergy/AdvReac Type Severity Reaction Status Date / Time morphine [MORPHINE] Allergy Intermediate HIVES, Verified 12/06/23 10:29 itchy Sulfa (Sulfonamide Allergy Intermediate HIVES Verified 12/06/23 10:29 Antibiotics) [SULFA (SULFONAMIDE ANTIBIOTICS)] oxycodone [From PERCODAN] AdvReac Severe DIAPHORESIS, Verified 12/06/23 10:29 PASSED OUT chantix AdvReac Unknown weird Verified 12/06/23 10:29 drreams nausea adhesive tape AdvReac skin tear Verified 12/06/23 10:29 Home Medications ?Medication ?Instructions ?Recorded ?Confirmed ?Last Taken ?Type magnesium 200 mg tablet 200 mg PO DAILY 03/21/23 12/04/23 Unknown History vitamin B complex (B 1 tab PO DAILY 03/21/23 12/04/23 Unknown History Complex-Vitamin B12 tablet) calcium carbonate 300 mg PO DAILY 12/04/23 12/04/23 Unknown History cholecalciferol (vitamin D3) 25 25 mcg PO DAILY 12/04/23 12/04/23 Unknown History mcg (1,000 unit) tablet (Vitamin D3) Exam Height,Weight and Vital Signs: Height 5 ft 3 in Weight 88.451 kg Assessment and Plan Assessment Anesthesia Assessment: Chart Reviewed Documented by User: Romelia Slade MD 12/06/23 10:30 [facility] Past Medical History Medical History (Updated 12/04/23 @ 13:45 by Gogo Fernandez RN) History of ETT HTN (hypertension) Osteopenia Arthritis Hx of osteoporosis Bilateral temporomandibular joint disorder Dysfunction of left eustachian tube Intermittent lightheadedness Tinnitus of left ear Maxillary sinusitis Chronic pain in left foot External hemorrhoids Capsulitis of left foot Corrigan's neuroma of left foot Obesity (BMI 30-39.9) Vitamin D deficiency IFG (impaired fasting glucose) Adenoma of left adrenal gland Degenerative disc disease Barretts esophagus Lung nodule < 6cm on CT GERD (gastroesophageal reflux disease) IBS (irritable bowel syndrome) Essential hypertension Family History Family History Father No problems noted. Mother HTN (hypertension) History of cataract Maternal Grandmother Cervical cancer Maternal Grandfather History of heart attack Brother No problems noted. Brother No problems noted. Brother No problems noted. Sister No problems noted. Other Mental health disorder Substance use disorder Family history of problems with anesthesia: No Surgical History Surgical History (Updated 12/04/23 @ 13:45 by Gogo Fernandez RN) History of esophagogastroduodenoscopy (EGD) H/O colonoscopy Hx of foot surgery History of repair of hiatal hernia History of laparoscopic cholecystectomy History of sinus surgery History of excision of pilonidal cyst History of left knee surgery Abdominal hernia History of Problems with Anesthesia: No Social History Social History Housing: House Patient Tobacco Use Status: Former Tobacco user Years Smoked: 40 years e-Cigarette/Vaping Use: Never Used Are you DNR?: No Advance Directives: No Advance Directives Information Provided: No Nutrition Risks: No Nutritional Risk Current occupational status: unemployed Cognitive needs: No Hearing needs: No Vision needs: Yes Meds Allergies Allergy/AdvReac Type Severity Reaction Status Date / Time morphine [MORPHINE] Allergy Intermediate HIVES, Verified 12/06/23 10:29 itchy Sulfa (Sulfonamide Allergy Intermediate HIVES Verified 12/06/23 10:29 Antibiotics) [SULFA (SULFONAMIDE ANTIBIOTICS)] oxycodone [From PERCODAN] AdvReac Severe DIAPHORESIS, Verified 12/06/23 10:29 PASSED OUT chantix AdvReac Unknown weird Verified 12/06/23 10:29 drreams nausea adhesive tape AdvReac skin tear Verified 12/06/23 10:29 Home Medications ?Medication ?Instructions ?Recorded ?Confirmed ?Last Taken ?Type magnesium 200 mg tablet 200 mg PO DAILY 03/21/23 12/04/23 Unknown History vitamin B complex (B 1 tab PO DAILY 03/21/23 12/04/23 Unknown History Complex-Vitamin B12 tablet) calcium carbonate 300 mg PO DAILY 12/04/23 12/04/23 Unknown History cholecalciferol (vitamin D3) 25 25 mcg PO DAILY 12/04/23 12/04/23 Unknown History mcg (1,000 unit) tablet (Vitamin D3) Exam Airway Mallampati Class: III TM Dist: >3cm Neck ROM: Full Assessment and Plan Assessment Anesthesia Assessment: Anesthesia Plan Discussed Final Anesthetic Review Family History of Problems with Anesthesia: No History of Problems with Anesthesia: No NPO: Yes ASA Class: III Final Preanesthetic Review: No Changes in Pt Med Stat, Meds/Allgs Chart Reviewed, Consent Obtained/Reviewed and Anes Risks/Benef Reviewed Patient Risk: Intermediate Procedure Risk: Low Anesthetic Plan Anesthetic Plan: TIVA Disposition: Standard PACU
[2023-12-06 10:21] VITALS: BMI 33.7
[2023-12-06] MEDS: Lactated Ringers 1,000 ML 100 ML IVCONT (10:32)
[2023-12-06 10:43] VITALS: BP 149/82; PULSE 87; RESP 18; TEMP 36.8; O2SAT 96
[2023-12-06 12:11] VITALS: BP 123/75; PULSE 81; RESP 16; TEMP 36.3; O2SAT 98
--- NOTE | 2023-12-06 12:12 | PM.OP ---
Brief Operative Note Date of Service: 12/06/23 Pre-op diagnosis: Screening Post-op diagnosis: other (Polyp) Procedure: Colonoscopy to the cecum and TI with bx/removal of polyp Surgeon: Enoc Gates MD Anesthesia: MAC Was an Languages And Literature Instructor used for this Procedure?: No Estimated blood loss (mL): 2.0 Pathology: other (A. Cecal polyp) Condition: stable Disposition: PACU
[2023-12-06 12:25] VITALS: BP 147/67; PULSE 65; RESP 16; O2SAT 100
[2023-12-06 12:40] VITALS: BP 149/58; PULSE 67; RESP 16; TEMP 36.3; O2SAT 98
--- NOTE | 2023-12-07 02:21 | OP_ITS ---
DATE OF SERVICE: 12/06/2023 SURGEON: Enoc Gates MD INDICATIONS: The patient presents for evaluation of colorectal cancer screening and personal history of tubular adenomas. Full consent has been obtained from her for this, including risks of bleeding and perforation. PREOPERATIVE DIAGNOSIS: Colorectal cancer screening and personal history of tubular adenoma of the colon. POSTOPERATIVE DIAGNOSIS: PROCEDURE PERFORMED: Colonoscopy to the cecum and terminal ileum with biopsy and removal of polyp. ESTIMATED BLOOD LOSS: COMPLICATIONS: ANESTHESIA: Monitored anesthesia care. ASSISTANTS: SPECIMENS: POSTOPERATIVE DIAGNOSES: Colorectal cancer screening and personal history of tubular adenoma of the colon, small colon polyp, diverticulosis, and internal hemorrhoids. DESCRIPTION OF PROCEDURE: The patient was placed in the left lateral decubitus position. The digital rectal exam revealed no abnormalities. The Olympus video pediatric colonoscope was entered into the rectum and advanced easily to the cecum. Once in the cecum, I did identify normal-appearing cecal pouch with appendiceal orifice and a normal-appearing ileocecal valve. The terminal ileum was cannulated and appeared normal. The scope was withdrawn back in the colon. The entire cecum, and ileocecal valve appeared normal other than a 3 mm polyp in the cecum, which was biopsied and completely removed with a cold biopsy forceps. The scope was then slowly withdrawn assessing all mucosal surfaces carefully. Preparation was excellent. I did not visualize any other polyps, colitis, nor angiodysplasia. There was a mild amount of sigmoid diverticulosis. In the rectum, scope was retroflexed visualizing internal hemorrhoids, but no other pathology. The rectal mucosa appeared normal. Scope was straightened and withdrawn from the patient. She tolerated the procedure well and was returned to the recovery area in stable condition. IMPRESSION: 1. Small colon polyp, status post biopsy and removal. 2. Diverticulosis. 3. Internal hemorrhoids. PLAN: The results of the pathology will be checked. I would recommend a repeat colonoscopy in 5 years for further surveillance. She will otherwise see me on a p.r.n. basis. Enoc Gates MD RMW/DELORES / [phone]
== END 2023-12-06 13:20 | disposition home or self-care (01) ==
PROVIDERS: PCP Internal Medicine; Visit Provider Internal Medicine
PROC: 0DJD8ZZ Inspection of Lower Intestinal Tract, Via Natural or Artificial Opening Endoscopic (ICD-10-PCS; CPT 45378; principal; 2023-12-06 11:40)
DX: Z12.11 Encounter for screening for malignant neoplasm of colon (principal); K57.30 Diverticulosis of large intestine without perforation or abscess without bleeding; K64.8 Other hemorrhoids; Z86.010 Personal history of colon polyps; K58.0 Irritable bowel syndrome with diarrhea; I10 Essential (primary) hypertension; Z79.899 Other long term (current) drug therapy
CPT/HCPCS: 45380; 88305; J2704

== ENCOUNTER 2024-03-24 09:46 | Outpatient (AMB) | payer MEDICARE, BC, SELFPAY ==
--- NOTE | 2024-03-24 09:49 | A.OFFVIS_ITS ---
Vital Signs 03/24/24 09:55 Height 5 ft 3 in Weight 196 lb 3.382 oz BMI 34.8 BP 152/98 H Blood Pressure Location Lt brachial Position Sitting Pulse 64 Pulse Source Pulse Oximeter Intake Visit Reasons: Adrenal Adenoma F/U Intake Note: Patient present today for Adrenal Adenoma follow up. Belt Maker Required: No Accompanied by: Self / Same As Patient Allergies morphine [MORPHINE] Allergy (Intermediate, Verified 03/24/24 09:56) HIVES, itchy Sulfa (Sulfonamide Antibiotics) [SULFA (SULFONAMIDE ANTIBIOTICS)] Allergy (Intermediate, Verified 03/24/24 09:56) HIVES oxycodone [From PERCODAN] Adverse Reaction (Severe, Verified 03/24/24 09:56) DIAPHORESIS, PASSED OUT chantix Adverse Reaction (Unknown, Verified 03/24/24 09:56) edna fernandez nausea adhesive tape Adverse Reaction (Verified 03/24/24 09:56) skin tear Medication List - Last Reconciled 03/24/24 by Enoc Alcantar MD calcium carbonate 300 mg PO DAILY cholecalciferol (vitamin D3) (Vitamin D3) 25 mcg PO DAILY lisinopril 10 mg PO DAILY magnesium 200 mg PO DAILY metoprolol succinate ER 25 mg PO BEDTIME vitamin B complex (B Complex-Vitamin B12 tablet) 1 tab PO DAILY HPI Comments Details: 63 yo female , today for follow-up visit, for evaluation of osteoporosis. and adrnal mass She has past medical history of lower back pain, vitamin-D deficiency, Pre diabetes, Depression, obesity. She denies prior fractures, positive GERD not on PPIs, positive FH of osteoporosis in her mother, she denies nephrolithiasis, she denies steroids used, positive smoker, she quit on February 2019. She denies anti seizures medications. She was on PPIs for a long period of time but she has not been on PPIs for maybe 20 years. She has negative History of head or neck irradiation. She has been taking alendronate 70 mg once a week with no problems since last visit. She has a good method of administration she is 100% adherent to therapy. Calcium intake: Calcium citrate 600 plus vitamin-D 800 twice a day. She is still not able to exercise due to leg pain. She is still limping. 04/07/19 dexa scan AP SPINE L1-L4: BMD 1.029 g/cm2, Z-score -0.3, T-score -1.3, osteopenia. LEFT FEMUR, NECK: BMD 0.685 g/cm2, Z-score -1.5, T-score -2.5, osteoporosis. LEFT FEMUR, TOTAL: BMD 0.753 g/cm2, Z-score -1.3, T-score -2.0, osteopenia. AP SPINE L1-L4: Current: BMD 1.048 g/cm2, Z-score -0.2, T-score -1.1, osteopenia, 1.8% increase from baseline (<5% change is not significant). Baseline: BMD 1.029 g/cm2. LEFT FEMUR, NECK: Current: BMD 0.723 g/cm2, Z-score -1.3, T-score -2.3, osteopenia. Baseline: BMD 0.685 g/cm2. LEFT FEMUR, TOTAL: Current: BMD 0.805 g/cm2, Z-score -0.9, T-score -1.6, osteopenia, 6.9% increase from baseline (<5% corona 03/31/2019 Hemoglobin 13.9 grams/deciliter Hematocrit 41.1% Creatinine 0.80 mg/dL GFR more than 60 mL/minute Potassium 4.2 millimole per L Sodium 144 millimole per L Calcium 9.1 mg/dL Albumin 4.4 g/dL Alkaline phosphatase 82 units/liter Vitamin-D 16.7 ng/dL TSH 1.20 mIU/mL \ 04/03/2019 There is a 1 cm low-attenuation left adrenal lesion axial image 51 series 2. Hounsfield units measure -30. This is stable from previous exam from 2013 and consistent with a benign lipid rich adenoma. Laboratory Tests 02/19/20 11/07/20 11/07/20 08:05 08:30 09:25 Sodium 142 Potassium 4.2 Creatinine 0.81 Estimated GFR > 60 Fasting Glucose 99 Calcium 9.0 Alkaline Phosphatase 75 Albumin 4.2 N-Telopeptide X-linked 13 25-OH Vitamin D Total 53.4 Cortisol 1.8 ACTH <5 L Dexamethasone SEE NOTE Laboratory Tests 03/31/19 07/02/19 02/03/20 09:18 12:40 09:00 Creatinine 0.76 Est GFR (Non-Af Amer) > 60 Calcium 9.0 D Alkaline Phosphatase 82 Total Protein 6.6 Albumin 4.2 N-Telopeptide X-linked 25-OH Vitamin D Total 29.4 TSH 3rd Generation 1.20 PTH Intact 38 Cortisol ACTH 02/19/20 02/19/20 07:53 08:05 Creatinine Est GFR (Non-Af Amer) Calcium Alkaline Phosphatase Total Protein Albumin N-Telopeptide X-linked 23 25-OH Vitamin D Total TSH 3rd Generation PTH Intact Cortisol 1.8 ACTH <5 L Laboratory Tests 07/02/19 07/02/19 02/03/20 12:40 12:40 09:00 Random Glucose 99 Fasting Glucose 93 Estimat Average Glucose 111 Hemoglobin A1c 5.5 No sx of Dionisio's or pheo . No fx since last visit [facility] Medical History History of ETT HTN (hypertension) Osteopenia Arthritis Hx of osteoporosis Bilateral temporomandibular joint disorder Dysfunction of left eustachian tube Intermittent lightheadedness Tinnitus of left ear Maxillary sinusitis Chronic pain in left foot External hemorrhoids Capsulitis of left foot Corrigan's neuroma of left foot Obesity (BMI 30-39.9) Vitamin D deficiency IFG (impaired fasting glucose) Adenoma of left adrenal gland Degenerative disc disease Barretts esophagus Lung nodule < 6cm on CT GERD (gastroesophageal reflux disease) IBS (irritable bowel syndrome) Essential hypertension Surgical History History of esophagogastroduodenoscopy (EGD) H/O colonoscopy Hx of foot surgery History of repair of hiatal hernia History of laparoscopic cholecystectomy History of sinus surgery History of excision of pilonidal cyst History of left knee surgery Abdominal hernia Family History Father No problems noted. Mother HTN (hypertension) History of cataract Maternal Grandmother Cervical cancer Maternal Grandfather History of heart attack Brother No problems noted. Brother No problems noted. Brother No problems noted. Sister No problems noted. Other Mental health disorder Substance use disorder Social History Housing: House Patient Tobacco Use Status: Former Tobacco user Years Smoked: 40 years e-Cigarette/Vaping Use: Never Used Current occupational status: unemployed Cognitive needs: No Hearing needs: No Vision needs: Yes Female Reproductive History Menstrual Age of Menarche: 9 Physical Exam Const Other: There are no cushingoid features. Thyroid gland is normal size weighs about 15 g . There are no thyroid nodules palpated. Assessment & Plan Assessment & Plan (1) Adenoma of left adrenal gland: Code(s): D35.02 - Benign neoplasm of left adrenal gland Category: Medical Plan: History of left adrenal adenoma a very low-density with imaging consistent with a benign adenoma. Workup for secretion was negative except for a mildly elevated cortisol after dexamethasone suppression. Normal midnight salivary cor tisol has ruled out Dionisio syndrome Plan is repeat midnight salivary cortisol (2) Osteoporosis: Code(s): M81.0 - Age-related osteoporosis without current pathological fracture Category: Medical Qualifiers: Osteoporosis type: age-related Presence of current pathological fracture: without current pathological fracture Qualified Code(s): M81.0 - Age- related osteoporosis without current pathological fracture Plan: This is a 63-year-old white female with a history of osteoporosis currently not on alendronate, calcium and vitamin-D with recent improvement in DEXA bone density showing low bone mass. Recent DEXA shows stability in bone density Would continue with calcium and vitamin-D supplementation and continue to hold the alendronate. (3) Hx of osteoporosis: Code(s): Z87.39 - Personal history of other diseases of the musculoskeletal system and connective tissue Category: Medical Plan: Not addressed Coding Level of Care Code Est Pt Level 3 (65586) Diagnoses Adenoma of left adrenal gland D35.02 Age-related osteoporosis without current pathological fracture M81.0 Osteoporosis type: age-related Presence of current pathological fracture: without current pathological fracture Hx of osteoporosis Z87.39
[2024-03-24 09:55] VITALS: BP 152/98; PULSE 64; BMI 34.8
== END 2024-03-24 10:18 | disposition home or self-care (01) ==
PROVIDERS: PCP Internal Medicine; Visit Provider Internal Medicine Endocrinology, Diabetes & Metabolism
DX: D35.02 Benign neoplasm of left adrenal gland (principal); M81.0 Age-related osteoporosis without current pathological fracture; Z87.39 Personal history of other diseases of the musculoskeletal system and connective tissue
CPT/HCPCS: 99213

== ENCOUNTER → 2024-03-24 09:46 | Outpatient (BNVA) | payer BC, SELFPAY | PROVIDERS: PCP Internal Medicine; Visit Provider Internal Medicine Endocrinology, Diabetes & Metabolism ==

== ENCOUNTER 2024-07-02 08:22 | Outpatient (AMB) | payer BC, SELFPAY ==
[2024-07-02 08:29] VITALS: BP 128/86; PULSE 64; O2SAT 96; BMI 34.9
--- NOTE | 2024-07-02 08:29 | A.OFFPC_ITS ---
Vital Signs 07/02/24 08:29 Height 5 ft 3 in Weight 197 lb BMI 34.9 BP 128/86 Blood Pressure Location Lt brachial Position Sitting Pulse 64 Pulse Source Pulse Oximeter Pulse Oximetry (%) 96 Oxygen Delivery Method Room Air Intake Visit Reasons: PE Intake Note: Pt is here today for her PE: Last mammogram 10/08/22, bone density scan 04/25/23, papsmear 10/12/20 Allergies morphine [MORPHINE] Allergy (Intermediate, Verified 07/02/24 08:58) HIVES, itchy Sulfa (Sulfonamide Antibiotics) [SULFA (SULFONAMIDE ANTIBIOTICS)] Allergy (Intermediate, Verified 07/02/24 08:58) HIVES oxycodone [From PERCODAN] Adverse Reaction (Severe, Verified 07/02/24 08:58) DIAPHORESIS, PASSED OUT chantix Adverse Reaction (Unknown, Verified 07/02/24 08:58) edna fernandez nausea adhesive tape Adverse Reaction (Verified 07/02/24 08:58) skin tear Medication List - Last Reconciled 07/02/24 by Lizzy Cruz MD calcium carbonate 300 mg PO DAILY cholecalciferol (vitamin D3) (Vitamin D3) 25 mcg PO DAILY lisinopril 10 mg PO DAILY magnesium 200 mg PO DAILY metoprolol succinate ER 25 mg PO BEDTIME vitamin B complex (B Complex-Vitamin B12 tablet) 1 tab PO DAILY Tobacco use date assessed: 07/02/24 Fall risk assessment: No Falls in past year Last assessed Fall Risk: 07/02/24 Dental Screening Dental Screen Date: 07/02/24 Did you have a dental visit in the last 12 months?: Yes Did you have a dental problem in the last 6 months where you did not have access to dental care?: No Was dental information given to patient?: Patient has dentist HPI PE HPI Details 63-year-old lady here today for her phys ical exam. She is due for her screening mammogram, last done 10/08/22. She has history of of osteoporosis currently followed by Dr. Alcantar, up-to-date with her bone density scan done 04/25/23 now showing osteopenia in AP spine, left femoral neck and left femur. She is up-to-date with her cancer screening with last papsmear done 10/12/20 at [facility], due again for recheck in 2025. Has hypertension currently stable controlled on lisinopril 10 mg taken daily and metoprolol 25 mg at bedtime. Up-to-date with her colon cancer screening, last colonoscopy done by Dr. Gates this year, with removal of hyperplastic polyp, repeat due again in 2033. Complains of chronic pain in left foot, no improvement after she had surgical correction of hammertoe and Corrigan's neuroma on left foot done at [facility], and has been told that there was no other treatment options available. [facility], [facility] Medical History (Updated 07/05/24 @ 16:53 by Lizzy Cruz MD) Cervical cancer screening declined Allergic rhinitis Bilateral ankle pain History of ETT HTN (hypertension) Osteopenia Arthritis Hx of osteoporosis Bilateral temporomandibular joint disorder Dysfunction of left eustachian tube Intermittent lightheadedness Tinnitus of left ear Maxillary sinusitis Chronic pain in left foot External hemorrhoids Capsulitis of left foot Corrigan's neuroma of left foot Obesity (BMI 30-39.9) Vitamin D deficiency IFG (impaired fasting glucose) Adenoma of left adrenal gland Degenerative disc disease Barretts esophagus Lung nodule < 6cm on CT GERD (gastroesophageal reflux disease) IBS (irritable bowel syndrome) Essential hypertension Surgical History History of esophagogastroduodenoscopy (EGD) H/O colonoscopy Hx of foot surgery History of repair of hiatal hernia History of laparoscopic cholecystectomy History of sinus surgery History of excision of pilonidal cyst History of left knee surgery Abdominal hernia Family History Father No problems noted. Mother HTN (hypertension) History of cataract Maternal Grandmother Cervical cancer Maternal Grandfather History of heart attack Brother No problems noted. Brother No problems noted. Brother No problems noted. Sister No problems noted. Other Mental health disorder Substance use disorder Social History Housing: House Patient Tobacco Use Status: Former Tobacco user Years Smoked: 40 years e-Cigarette/Vaping Use: Never Used Current occupational status: unemployed Cognitive needs: No Hearing needs: No Vision needs: Yes Female Reproductive History Menstrual Age of Menarche: 9 Questionnaire PHQ-9 Over the last 2 weeks, how often have you been bothered by any of the following problems? 1. Little interest or pleasure in doing things: not at all 2. Feeling down, depressed, or hopeless: not at all 3. Trouble falling or staying asleep, or sleeping too much: not at all 4. Feeling tired or having little energy: not at all 5. Poor appetite or overeating: not at all 6. Feeling bad about yourself - or that you are a failure or have let yourself or your family down: not at all 7. Trouble concentrating on things, such as reading the newspaper or watching television: not at all 8. Moving or speaking so slowly that other people could have noticed. Or the opposite - being so fidgety or restless that you have been moving around a lot more than usual: not at all 9. Thoughts that you would be better off or of hurting yourself in some way: not at all Total score: 0 Depression Screening Interpretation: Negative Depression Screening Done: Yes 60584 - PHQ-9 Billing: Yes Source: Developed by Drs. Enoc Benson, Cassi Donnelyl, Gurpreet Flores and colleagues, with an educational ralf from [employer]. Thrive Questionnaire Date Thrive assessed: 06/25/24 I am a: Patient What is your living situation today?: I have a steady place to live Within the past 12 months, did the food you bought not last and you didn't have the money to get more?: Never true Within the past 12 months, did you worry whether your food would run out before you got money to buy more?: Never true Do you have trouble paying for medicines?: No Do you have trouble getting transportation to medical appointments?: No Do you have trouble paying your heating and electricity bill?: No Do you have trouble taking care of your child, family member or friend?: No Do you have trouble with day-to-day activities such as bathing, preparing meals, shopping, managing finances, etc.?: No Are you currently unemployed and looking for a job?: I choose not to answer this question Are you interested in more education?: No THRIVE Score: 0 AUDIT C Alcohol Use Questionnaire (AUDIT-C) 1. How often do you have a drink containing alcohol?: Never Total Score: 0 RAFA-7 AMB Questionnaire RAFA-7 Date RAFA - 7 assessed: 07/02/24 Feeling nervous, anxious, or on edge: 0 = Not at all Not being able to stop or control worryin = Not at all Worrying too much about different things: 0 = Not at all Trouble relaxin = Not at all Being so restless that it is hard to sit still: 0 = Not at all Becoming easily annoyed or irritable: 0 = Not at all Feeling afraid as if something awful might happen: 0 = Not at all Total RAFA-7 score (0-4 normal; 5-9 mild; 10-14 moderate; 15-21 severe): 0 Source: Developed by Drs. Enoc Benson, Cassi Donnelly, Gurpreet Flores and colleagues, with an educational ralf from [employer]. RAFA-7 Assessment Billing RAFA-7 Assessment Tool: RAFA-7 Assessment 62851 Review of Systems Const Denies body aches, Denies fatigue, Denies fever(s), Denies headache(s) and Denies weakness Eyes Denies change in vision, Denies eye discharge and Denies itchy eyes ENT Denies dizziness, Denies headache(s), Reports nasal congestion, Reports nasal discharge, Reports post nasal drip and Denies sore throat Card Denies chest pain, Denies lightheadedness, Denies palpitations and Denies dyspnea Resp Denies chest congestion, Denies cough, Denies dyspnea and Denies wheezing GI Denies abdominal pain, Denies change in bowel habits and Denies heartburn Denies hematuria, Denies urinary frequency, Denies dysuria and Denies urinary urgency Musc Reports as per HPI Skin/Breast Denies breast pain, Denies breast mass, Denies lesions and Denies rash Neuro Denies dizziness, Denies headache(s) and Denies weakness Psych Reports no additional complaints Endo Denies fatigue, Denies polydipsia, Denies polyuria and Denies palpitations Chalo/Lymph Denies easy bruising Aller/Immun Denies itchy eyes, Denies seasonal rhinorrhea and Denies wheezing Physical exam (Primary Care) Vital Signs: Last Vital Signs Pulse 64 07/02/24 08:29 BP 128/86 07/02/24 08:29 Pulse Ox 96 07/02/24 08:29 Oxygen Delivery Method Room Air 07/02/24 08:29 BMI result Body Mass Index 34.9 Tobacco/Smoking Status: Tobacco use Status Tobacco use date assessed 07/02/24 07/02/24 08:36 Patient Tobacco Use Status Former Tobacco user 07/02/24 08:36 e-Cigarette/Vaping Use Never Used 07/02/24 08:36 PHQ-9: PHQ-9 Score PHQ-9: Total score 0 07/05/24 16:31 Depression Screening Interpretation: Negative Thrive Assessment: Date of Thrive Assessment Date Thrive assessed 06/25/24 07/02/24 08:36 Const Other: Alert oriented x3, no acute distress noted, ambulatory with limping gait Orientation/consciousness: patient oriented x3 HENMT Head: Yes normocephalic Ears: hearing grossly normal bilaterally, external ears normal, TM's normal bilaterally and EAC's normal General nose exam: Normal external nose present Face and sinus: Yes face symmetric Mouth: Normal oral and palatal mucosa present, oropharynx normal and moist mucous membranes Eyes General: appearance normal, both eyes and all related structures Neck Neck: Yes full ROM, Yes no lymphadenopathy and Yes supple Chest Breast/axilla palpation: normal palpation of the breasts Resp Auscultation: clear to auscultation bilaterally Cardio Rate: regular rate Rhythm: regular rhythm Heart sounds: S1 normal heart sound present and S2 normal heart sound present GI Palpation (GI): Soft to palpation, nontender, no guarding and no masses Auscultation: normal bowel sounds General: Yes no CVA tenderness and Yes deferred Back/Spine/Pelvis Back: no CVA tenderness and No back tenderness Skin General skin exam: no rashes or lesions noted Neuro General: patient oriented x3, tone normal, moves all extremities, Normal light touch and pain sensation and no focal motor deficits Extrem Other: Decreased range of motion left foot, bilateral ankle pain, worse with extended walking or standing General: Yes no joint enlargement, Yes no clubbing, cyanosis or edema and Yes no calf tenderness Psych Appearance: grossly normal and well kempt Mental Status: mental status grossly normal Speech and movement: Normal speech and movement present Affect: normal affect Thought process: Normal thought process present Thought content: Normal thought content present Results Reviewed Results Reviewed: Coding Level of Care Code Est Pt Prev Care >65y(42360) Diagnoses Annual visit for general adult medical examination with abnormal findings Z00.01 Essential hypertension I10 IFG (impaired fasting glucose) R73.01 Obesity (BMI 30-39.9) E66.9 Chronic pain in left foot M79.672; G89.29 Seasonal allergic rhinitis, unspecified trigger J30.2 Allergic rhinitis trigger: unspecified Allergic rhinitis seasonality: seasonal Hx of osteoporosis Z87.39 Cervical cancer screening declined Z53.20 Advanced directives, counseling/discussion Z71.89 Additional Codes RAFA-7 Assessment Billing - RAFA-7 Assessment Tool: RAFA-7 Assessment 85535 ([id number]) PHQ-9 - 66468 - PHQ-9 Billing: Yes ([id number]) Assessment & Plan Assessment & Plan (1) Annual visit for general adult medical examination with abnormal findings: Code(s): Z00.01 - Encounter for general adult medical examination with abnormal findings Plan: Will check appropriate labs. Recommended dental visit every 6 months and regular eye exams, at least every 2 years, currently up-to-date.. Take adequate calcium in diet and vitamin-D 3 at 2000 IU per cap once a day, Instructed to do self-breast exam, and continue with yearly mammogram. Up-to-date with her colon cancer screening and vaccinations (2) Essential hypertension: Code(s): I10 - Essential (primary) hypertension Category: Medical Plan: Blood pressure at goal of less than 130/80. Continue with current medication. Reinforced importance of following a low sodium diet, getting regular exercise, and lowering stress levels. (3) IFG (impaired fasting glucose): Code(s): R73.01 - Impaired fasting glucose Category: Medical Plan: Your previous fasting blood sugars were elevated above 100 mg/dL. Impaired glucose metabolism increases the risk for developing diabetes mellitus type 2, as well as heart attack and stroke later on. Lifestyle changes that promotes weight loss, healthy eating habits, and regular exercise are important, and can prevent the progression to diabetes (4) Obesity (BMI 30-39.9): Code(s): E66.9 - Obesity, unspecified Category: Medical Plan: Advised to try Mediterranean diet, limit food high in fat, sugar, and calories. Eat slowly, pay attention to portion sizes, plan your meals ahead of time, unable to do much exercise due to chronic pain left foot, encouraged to do water aerobic exercises instead. Keeping a food diary, tracking what you eat and your physical activity can help assess what improvements you can make. There are many health problems associated with being overweight/obese, so it is important to improve your diet and exercise. There are medications and surgical options available, but Lifestyle changes are the 1st step. (5) Chronic pain in left foot: Comment: no relief with treatment given by podiatry Code(s): M79.672 - Pain in left foot; G89.29 - Other chronic pain Category: Medical Plan: Has been seen by [facility] podiatry with no further treatment options available for patient. (6) Allergic rhinitis: Code(s): J30.9 - Allergic rhinitis, unspecified Category: Medical Qualifiers: Allergic rhinitis trigger: unspecified Allergic rhinitis seasonality: seasonal Qualified Code(s): J30.2 - Other seasonal allergic rhinitis Plan: Prescription sent for Azelastine nasal spray, use as directed (7) Hx of osteoporosis: Code(s): Z87.39 - Personal history of other diseases of the musculoskeletal system and connective tissue Category: Medical Plan: Evaluated by Dr. Alcantar, has history of osteoporosis,currently not on alendronate, calcium and vitamin-D with recent improvement in DEXA bone density showing low bone mass. Recent DEXA shows stability in bone density. Advised to continue with calcium and vitamin-D supplements and continue to hold off on taking alendronate (8) Cervical cancer screening declined: Code(s): Z53.20 - Procedure and treatment not carried out because of patient's decision for unspecified reasons Category: Medical Plan: Patient does not want to get any further pelvic exams or Pap smears done (9) Advanced directives, counseling/discussion: Code(s): Z71.89 - Other specified counseling Plan: Initiated the conversation about Advanced Directives. Advanced Directives help patients prepare for current and future decisions about their medical treatment and place of care. Discussed with patient that it is a process where a patients current condition and prognosis are reviewed, their wishes for information regarding their illness are elicited, and likely medical dilemmas are presented and options discussed. Healthcare proxy form and MOLST form completed today. These forms can be amended as needed, reviewed yearly and make changes as needed Orders: Orders Lipid Panel 07/03/24 E55.9 - Vitamin D deficiency, unspecified, E66.9 - Obesity, unspecified, G89.29 - Other chronic pain, I10 - Essential (primary) hypertension, K21.9 - Gastro-esophageal reflux disease without esophagitis, K58.0 - Irritable bowel syndrome with diarrhea, M25.571 - Pain in right ankle and joints of right foot, M25.572 - Pain in left ankle and joints of left foot, M79.672 - Pain in left foot, R73.01 - Impaired fasting glucose Aspartate Amino Transferase 07/03/24 E55.9 - Vitamin D deficiency, unspecified, E66.9 - Obesity, unspecified, G89.29 - Other chronic pain, I10 - Essential (primary) hypertension, K21.9 - Gastro-esophageal reflux disease without esophagitis, K58.0 - Irritable bowel syndrome with diarrhea, M25.571 - Pain in right ankle and joints of right foot, M25.572 - Pain in left ankle and joints of left foot, M79.672 - Pain in left foot, R73.01 - Impaired fasting glucose MM tomosynthesis screening BI 07/02/24 Z12.31 - Encounter for screening mammogram for malignant neoplasm of breast Vitamin D 25-OH Total 07/03/24 E55.9 - Vitamin D deficiency, unspecified, E66.9 - Obesity, unspecified, G89.29 - Other chronic pain, I10 - Essential (primary) hypertension, K21.9 - Gastro-esophageal reflux disease without esophagitis, K58.0 - Irritable bowel syndrome with diarrhea, M25.571 - Pain in right ankle and joints of right foot, M25.572 - Pain in left ankle and joints of left foot, M79.672 - Pain in left foot, R73.01 - Impaired fasting glucose Basic Metabolic Panel Fasting 07/03/24 E55.9 - Vitamin D deficiency, unspecified, E66.9 - Obesity, unspecified, G89.29 - Other chronic pain, I10 - Essential (primary) hypertension, K21.9 - Gastro-esophageal reflux disease without esophagitis, K58.0 - Irritable bowel syndrome with diarrhea, M25.571 - Pain in right ankle and joints of right foot, M25.572 - Pain in left ankle and joints of left foot, M79.672 - Pain in left foot, R73.01 - Impaired fasting glucose Alanine Aminotransferase 07/03/24 E55.9 - Vitamin D deficiency, unspecified, E66.9 - Obesity, unspecified, G89.29 - Other chronic pain, I10 - Essential (primary) hypertension, K21.9 - Gastro-esophageal reflux disease without esophagitis, K58.0 - Irritable bowel syndrome with diarrhea, M25.571 - Pain in right ankle and joints of right foot, M25.572 - Pain in left ankle and joints of left foot, M79.672 - Pain in left foot, R73.01 - Impaired fasting glucose Medications: New azelastine administer into each nostril 2 sprays intranasal BID 30 mL 0RF J30.9 - Allergic rhinitis, unspecified
--- OUTSIDE RECORDS SUMMARY | 2024-07-02 08:36 | XMS_ITS | Patient Health Record ---
Author Organization [facility] Address [address] [place] [address] Care Team Providers Care Soil Sampler Name Role Phone Anthony JAUREGUI, Lizzy Primary Care Provider Enoc Chow [phone] ALLERGIES Allergen (clinical drug ingredient) Drug/Non Drug Allergy documented on EMR Reaction Allergy Type Onset Date Status Percodan Unknown Drug Allergy Active acetaminophen / oxycodone Percocet Unknown Drug Allergy Active morphine Morphine Sulfate Unknown Drug Allergy Active varenicline Chantix Unknown Drug Allergy Activ e narcotics (uncoded) Unknown Allergy Active Adhesive Unknown Allergy Active Seasonal IC Unknown Drug Allergy Activ e Sulfa Unknown Drug Allergy Active RESULTS Component Value Reference Range Notes Pathology Reviewed date:12/15/2023 11:54:28 PM Interpretation: Performing Lab:[facility], [address] [place] [id number] Notes/Report: REASON FOR REFERRAL No Information MEDICATIONS Medication SIG (Take, Route, Frequency, Duration) Notes Start Date End Date Status Metoprolol Succinate ER 25 MG Oral for 90 Active Lisinopril 10 MG TAKE 1 TABLET BY NORAH TH EVERY DAY Oral for 90 Active Calcium Active Magnesium Active Vitamin D3 Active Vitamin B Complex Ac tive Dicyclomine HCl 10 MG 1 or 2 capsules Or ally Use 15 to 30 minutes before a meal tp prevent any symptoms such as abdominal cramps or diarrhea, or use every 6 hours as needed for abdominal cramps or discomfort for 30 day(s) 09/18/2023 Active SOCIAL HISTORY Tobacco Use: Social History Observation Description Date Details (start date - stop date) Former Smoker NA - NA Sex Assigned At : Social History Observation Description Sex Assigned At Unknown Tobacco Use/Smoking Question Answer Notes Patient is a former smoker How long has it been since you last smoked? 1-5 years PROBLEMS Problem Type ICD Code Onset Dates Problem Status W/U Status Risk SNOMED Code Notes Problem Encounter for screening for malignant neoplasm of colon (Z12.11) Active confirmed 270393425 Problem History of adenomatous polyp of colon (Z86.010) Active confirmed History o f adenomatous polyp of colon (558923735) Problem Diverticulosis of large intestine without perforation or abscess without bleeding (K57.30) Active confirmed Diverticul ar disease of colon (397619287) Problem Irritable bowel syndrome with diarrhea (K58.0) Active confirmed 406971212 Problem Gastroesophageal reflux disease without esophagitis (K21.9) Active confirmed [id number] VITAL SIGNS Temperature 97.8 degrees Fahrenheit 09/17/2023 Blood pressure diastolic 00 mm Hg 09/17/2023 Height 63 in 09/17/2023 Blood pressure systolic 00 mm Hg 09/17/2023 Weight 195 lbs 09/17/2023 BMI 34.54 kg/m2 09/17/2023 Encounters Encounter Location Date Provider Diagnosis [facility] [address] [address] [place], [place] [id number] 12/06/2023 Enoc Gates Encounter for screen ing colonoscopy Z12.11 ; Colon polyps K63.5 ; Diverticulosis of large intestine without perforation or abscess without bleeding K57.30 and Other hemorrhoids K64.8 [facility] [address] [place] [address] 09/17/2023 Enoc Gates Irritable bowel syndrome with diarrhea K58.0 ; Encounter for screening for malignant neoplasm of colon Z12.11 and History of adenomatous polyp of colon Z86.010 ASSESSMENTS Encounter Date Diagnosis Assessment Notes Treatment Notes Treatment Clinical Notes 12/06/2023 Encounter for screening colonoscopy (ICD-10 - Z12.11) 12/06/2023 Colon polyps (ICD-10 - K63.5) 09/17/2023 Encounter for screening for malignant neoplasm of colon (ICD-10 - Z12.11) 09/17/2023 Irritable bowel syndrome with diarrhea (ICD-10 - K58.0) 12/06/2023 Diverticulosis of large intestine without perforation or abscess without bleeding (ICD-10 - K57.30) 09/17/2023 History of adenomatous polyp of colon (ICD-10 - Z86.010) 12/06/2023 Other hemorrhoids (ICD-10 - K64.8) PLAN OF TREATMENT Future Test Test Name Order Date UPPER GI ENDOSCOPY 02/11/2013 COLONOSCOPY 03/20/2018 COLONOSCOPY 09/17/2023 Insurance Providers Payer Name Payer Address Payer Phone Subscriber Number Group Number Insured Name Patient Relationship to Insured Coverage Start Date Coverage End Date MEDICARE OF [place] [address] [place] [address] [id number] ALEJANDRO DOHERTY Self - patient is the insured [facility] [address] [place], [place] [id number] [phone] [id number] ALEJANDRO DOHERTY Self - patient is the insured MEDICAL (GENERAL) HISTORY Medical History History ICD Code GERD WITH ASSOCIATED RIVERA 'S ESOPHAGUS- EGD in 11/2007 and in 02/2013-no Rivera's seen--no esophagitis, minimal HH HTN Denies [place],DM,CVA,Lung disease,renal dise ase Neg. colonoscopy in 11/2007 a nd 2000--bx neg for colitis in 2000; diverticulosis and internal hemorrhoids Had an ETT in 12/[address] Chawla IBS-neg labs for celiac disease in 2013 Rx'd for H.pylori in 02/2014 Osteopenia Arthritis Colonoscopy 03/2018 with a small tubular adenoma Surgical History Surgery Date(Month/Year) STATUS POST LAPAROSCOPIC HIATAL HERNIA S URGERY--2001-Dr. Rodriguez HISTORY OF INGUINAL HERNIA SURGERY HISTORY OF SINUS SURGERY HISTORY OF KNEE SURGERY PILONIDAL CYST [facility] in 03/2014 Left foot surgery 03/2022
--- OUTSIDE RECORDS SUMMARY | 2024-07-02 08:36 | XMS_ITS ---
Author Organization [facility] Address [address] [place] [address] Care Team Providers Care Ehs Manager Name Role Phone Anthony JAUREGUI, Lizzy Primary Care Provider Enoc Chow Unavailable [phone] REASON FOR VISIT screening,hx polyps PROBLEMS Problem Type ICD Code Onset Dates Problem Status W/U Status Risk SNOMED Code Notes Problem Diverticulosis of large intestine without perforation or abscess without bleeding (K57.30) Active confirmed Diverticul ar disease of colon (263717623) Encounters Encounter Location Date Provider Diagnosis [facility] Outpatient [address], [place] [id number] 12/06/2023 Enoc Gates Encounter for scre ening colonoscopy Z12.11 ; Colon polyps K63.5 ; Diverticulosis of large intestine without perforation or abscess without bleeding K57.30 and Other hemorrhoids K64.8 ASSESSMENTS Encounter Date Diagnosis Assessment Notes Treatment Notes Treatment Clinical Notes 12/06/2023 Encounter for screening colonoscopy (ICD-10 - Z12.11) 12/06/2023 Colon polyps (ICD-10 - K63.5) 12/06/2023 Diverticulosis of large intestine without perforation or abscess without bleeding (ICD-10 - K57.30) 12/06/2023 Other hemorrhoids (ICD-10 - K64.8) PLAN OF TREATMENT No Information
--- OUTSIDE RECORDS SUMMARY | 2024-07-02 08:36 | XMS_ITS ---
Author Organization [facility] Address [address] [place] [address] Care Team Providers Care Manager Center Name Role Phone Anthony JAUREGUI, Lizzy Primary Care Provider Enoc Chow [phone] ALLERGIES Allergen (clinical drug ingredient) Drug/Non Drug [...] Activ e Sulfa Unknown Drug Allergy Active REASON FOR VISIT Patient presents today for a recall colonoscopy MEDICATIONS Medication SIG (Take, Route, Frequency, Duration) Notes Start Date End Date Status Metoprolol Succinate ER 25 MG Oral for 90 Active Lisinopril 10 MG TAKE 1 TABLET BY EVERY DAY Oral for 90 Active Calcium [...] W/U Status Risk SNOMED Code Notes Problem History of adenomatous polyp of colon (Z86.010) Active confirmed History of adenomatous polyp of colon (343014377) VITAL SIGNS BMI 34.54 kg/m2 09/17/2023 Blood pressure systolic 00 mm Hg 09/17/19 24 Blood pressure diastolic 00 mm Hg 024 Height 63 in 09/17/2023 Temperature 97.8 degrees Fahrenheit 09/17/19 24 Weight 195 lbs 09/17/2023 Encounters Encounter Location Date Provider Diagnosis [facility] [address] [place] [address] 09/17/2023 Enoc Gates Irritable bowel syndrome with diarrhea K58.0 ; Encounter for screening for malignant neoplasm of colon Z12.11 and History of adenomatous polyp of colon Z86.010 ASSESSMENTS Encounter Date Diagnosis Assessment Notes Treatment Notes Treatment Clinical Notes 09/17/2023 Irritable bowel syndrome with diarrhea (ICD-10 - K58.0) 09/17/2023 Encounter for screening for malignant neoplasm of colon (ICD-10 - Z12.11) 09/17/2023 History of adenomatous polyp of colon (ICD-10 - Z86.010) PLAN OF TREATMENT Medication Medication Name Sig Start Date Stop Date Notes Dicyclomine HCl 10 MG 1 or 2 capsules Or ally Use 15 to 30 minutes before a meal tp prevent any symptoms such as abdominal cramps or diarrhea, or use every 6 hours as needed for abdominal cramps or discomfort for 30 day(s) 09/18/2023 Future Test Test Name Order Date COLONOSCOPY 09/17/2023 Next Appt Details Follow Up: prn, Reason: Progress Notes * Examination Category Sub-Category Detail Notes General Examination GENERAL APPEARANCE: pleasant , well nourished, well developed, in no acute distress EYES: sclera non-icteric NECK/THYROID: no cervical lymphade nopathy, neck supple HEART: S1, S2 normal LUNGS: clear to auscultatio n bilaterally ABDOMEN: normal bowel sounds, no guarding or rigidity, no hepatosplenomegaly, no masses palpable, soft, nontender, nondistended. NEUROLOGIC: alert and oriented SKIN: nonjaundiced, no spi sachi angiomata. EXTREMITIES: no edema ORAL CAVITY: mucosa moist
== END 2024-07-02 09:39 | disposition home or self-care (01) ==
PROVIDERS: PCP Internal Medicine; Visit Provider Internal Medicine
DX: Z00.00 Encounter for general adult medical examination without abnormal findings (principal); I10 Essential (primary) hypertension; E66.9 Obesity, unspecified; Z68.34 Body mass index [BMI] 34.0-34.9, adult; R73.01 Impaired fasting glucose; M79.672 Pain in left foot; G89.29 Other chronic pain; J30.2 Other seasonal allergic rhinitis; Z87.39 Personal history of other diseases of the musculoskeletal system and connective tissue; Z53.20 Procedure and treatment not carried out because of patient's decision for unspecified reasons; Z71.89 Other specified counseling

== ENCOUNTER → 2024-07-02 08:22 | Outpatient (BNVA) | payer BC, SELFPAY | PROVIDERS: PCP Internal Medicine; Visit Provider Internal Medicine | DX: Z00.01 Encounter for general adult medical examination with abnormal findings (principal); I10 Essential (primary) hypertension; R73.01 Impaired fasting glucose; E66.9 Obesity, unspecified; G89.29 Other chronic pain; M79.672 Pain in left foot; J30.2 Other seasonal allergic rhinitis; Z87.39 Personal history of other diseases of the musculoskeletal system and connective tissue; Z79.899 Other long term (current) drug therapy; Z71.89 Other specified counseling | CPT/HCPCS: 96127 ==

== ENCOUNTER 2024-07-03 07:37 | Outpatient (REF) | payer BC, MEDICARE, SELFPAY ==
--- OUTSIDE RECORDS SUMMARY | 2024-07-03 07:42 | XMS_ITS ---
Author Organization [facility] Address [address] [place] [address] Care Team Providers Care Manager Field Name Role Phone Anthony JAUREGUI, Lizzy Primary Care Provider Enoc Chow Unavailable [phone] REASON FOR VISIT screening,hx polyps PROBLEMS Problem Type ICD Code Onset Dates Problem Status W/U Status Risk SNOMED Code Notes Problem Diverticulosis of large intestine without perforation or abscess without bleeding (K57.30) Active confirmed Diverticul ar disease of colon (688845959) Encounters Encounter Location Date Provider Diagnosis [facility] Outpatient [address] [place], [place] [id number] 12/06/2023 Enoc Gates Encounter for scre ening [...]
--- OUTSIDE RECORDS SUMMARY | 2024-07-03 07:42 | XMS_ITS ---
Author Organization [facility] Address [address] [place] [address] Care Team Providers Care Work Station Support Specialist Name Role Phone Anthony JAUREGUI, Lizzy Primary Care Provider Enoc Chow [phone] ALLERGIES Allergen (clinical drug ingredient) Drug/Non Drug [...] confirmed History of adenomatous polyp of colon (777022778) VITAL SIGNS BMI 34.54 kg/m2 09/17/2023 Blood pressure systolic 00 mm Hg 09/17/19 24 Blood pressure diastolic 00 mm Hg 024 Height 63 in 09/17/2023 Temperature 97.8 degrees Fahrenheit 09/17/19 24 Weight 195 lbs 09/17/2023 Encounters Encounter Location Date Provider Diagnosis [facility] [address] [place] [address] 09/17/2023 Enoc Gates Irritable bowel syndrome with [...]
--- OUTSIDE RECORDS SUMMARY | 2024-07-03 07:42 | XMS_ITS | Patient Health Record ---
Author Organization [facility] Address [address] [place] [address] Care Team Providers Care Pesticide Control Inspector Name Role Phone Anthony JAUREGUI, Lizzy Primary Care Provider Enoc Chow [phone] ALLERGIES Allergen (clinical drug ingredient) Drug/Non Drug [...] Pathology Reviewed date:12/15/2023 11:54:28 PM Interpretation: Performing Lab:[facility], [address] [place] [id number] Notes/Report: REASON FOR REFERRAL No Information MEDICATIONS [...] malignant neoplasm of colon (Z12.11) Active confirmed 851030505 Problem History of adenomatous polyp of colon (Z86.010) Active confirmed History o f adenomatous polyp of colon (980082248) Problem Diverticulosis of large intestine without perforation or abscess without bleeding (K57.30) Active confirmed Diverticul ar disease of colon (342436863) Problem Irritable bowel syndrome with diarrhea (K58.0) Active confirmed 695395461 Problem Gastroesophageal reflux disease without esophagitis (K21.9) Active confirmed 822992409 VITAL SIGNS Temperature 97.8 degrees Fahrenheit 09/17/2023 Blood pressure diastolic 00 mm Hg 09/17/2023 Height 63 in 09/17/2023 Blood pressure systolic 00 mm Hg 09/17/2023 Weight 195 lbs 09/17/2023 BMI 34.54 kg/m2 09/17/2023 Encounters Encounter Location Date Provider Diagnosis [facility] Outpatient [address] [place], [place] [id number] 12/06/2023 Enoc Gates Encounter for screen ing colonoscopy Z12.11 ; Colon polyps K63.5 ; Diverticulosis of large intestine without perforation or abscess without bleeding K57.30 and Other hemorrhoids K64.8 [facility] [address] [facility] [address] [place] [address] 09/17/2023 Enoc Gates Irritable bowel syndrome with [...] [place] [address] [place] [address] [phone] [id number] ALEJANDRO DOHERTY Self - patient is the insured [facility] [address] [place], [place] [phone] [id number] ALEJANDRO DOHERTY Self - patient is the insured MEDICAL (GENERAL) HISTORY Medical History History ICD Code GERD WITH ASSOCIATED RIVERA 'S ESOPHAGUS- EGD in 11/2007 and in 02/2013-no Rivera's seen--no esophagitis, minimal HH HTN Denies NE,DM,CVA,Lung disease,renal dise ase Neg. colonoscopy in 11/2007 [...]
[2024-07-03 11:14] LABS: Alanine Aminotransferase 25 U/L (0-31); Anion Gap 10 (12-20); Aspartate Amino Transferase 20 U/L (5-31); Blood Urea Nitrogen 12 mg/dL (9-16); Calcium 8.9 mg/dL (8.4-10.2); Carbon Dioxide 27 mmol/L (22-29); Chloride 109 mmol/L (96-108); Cholesterol 170 mg/dL (<200); Estimated Glomerular Filt Rate > 60; Glucose Fasting 103 mg/dL (60-99); HDL Cholesterol 53 mg/dL (>40); LDL Cholesterol Calculated 95 mg/dL (<100); Potassium 3.9 mmol/L (3.3-5.1); Sodium 142 mmol/L (135-145); Triglycerides 110 mg/dL (<150); Vitamin D 25-OH Total 49.9 ng/mL (>30)
== END 2024-07-03 07:38 | disposition home or self-care (01) ==
LOC: HO.HMGCLDS 07:37
PROVIDERS: PCP Internal Medicine; Visit Provider Internal Medicine
DX: R73.01 Impaired fasting glucose (principal); E55.9 Vitamin D deficiency, unspecified; K21.9 Gastro-esophageal reflux disease without esophagitis; K58.0 Irritable bowel syndrome with diarrhea; I10 Essential (primary) hypertension; E66.9 Obesity, unspecified; M79.672 Pain in left foot; G89.29 Other chronic pain; M25.571 Pain in right ankle and joints of right foot; M25.572 Pain in left ankle and joints of left foot
CPT/HCPCS: 36415; 80048; 80061; 82306; 84450; 84460

== ENCOUNTER 2024-10-12 10:17 | Outpatient (REF) | payer MEDICARE, BC, SELFPAY | END 2024-10-12 10:18 | disposition home or self-care (01) | LOC: HO.MAMMO 10:17 | PROVIDERS: PCP Internal Medicine; Visit Provider Internal Medicine | DX: Z12.31 Encounter for screening mammogram for malignant neoplasm of breast (principal) | CPT/HCPCS: 77063; 77067 ==

== ENCOUNTER → 2024-10-12 10:30 | Outpatient (BNV) | payer MEDICARE, BC, SELFPAY | PROVIDERS: PCP Internal Medicine; Visit Provider Internal Medicine | DX: Z12.31 Encounter for screening mammogram for malignant neoplasm of breast (principal) | CPT/HCPCS: 77063; 77067 ==

== ENCOUNTER 2024-11-10 11:38 | Outpatient (REF) | payer MEDICARE, BC, SELFPAY ==
--- OUTSIDE RECORDS SUMMARY | 2024-11-10 16:35 | XMS_ITS | Clinical Summary ---
Author Organization [facility] Address [address] [place] [address] Care Team Providers Care Burn Out Scarfing Operator Name Role Phone Unavailable Primary Care Provider [...] Bone Density Screening 2023 Falls Prevention 2023 [id number] (3 season) 2024 021, 10/31/2020 Imm-Influenza (#1) 2024 04/18/2020, 1 , 05/06/2018, Additional history exists Alcohol and Drug Screen 07/22/2024 Depression Annual Screen 07/22/2024 Imm-DTaP/Tdap/Td (2 - Td or Tdap) 05/08/2029 019 Imm-Zoster, Recombinant Completed 06/17/2020, 04/18 Insurance [employer] Member Subscriber Plan / Payer (Ef fective 2020-Present) Name:Erika Nguyen Relation to Subscriber:Self Name:Erika Nguyen Payer ID:[id number] Group ID:[id number] Type:Indemnity Address: [facility] [id number] [place] [address]
[2024-11-16 12:13] LABS: HPV Genotype 16 Negative (Negative); HPV Genotype 18 Negative (Negative); HPV High Risk Negative (Negative)
== END 2024-11-10 11:39 | disposition home or self-care (01) ==
LOC: HO.LNP 11:38
PROVIDERS: PCP Internal Medicine; Visit Provider Obstetrics & Gynecology
DX: R93.89 Abnormal findings on diagnostic imaging of other specified body structures (principal); N84.2 Polyp of vagina
CPT/HCPCS: 58100; 87626; 88175; 88305; 99202

== ENCOUNTER 2024-11-10 11:38 | Outpatient (AMB) | payer MEDICARE, BC, SELFPAY ==
[2024-11-10 12:13] VITALS: BP 126/74; BMI 34.9
--- NOTE | 2024-11-10 12:13 | MHC.OFFVIS ---
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 Required: No Information Interpreted: non-clinical & clinical Accompanied by: Self / Same As Patient Allergies morphine [MORPHINE] Allergy (Intermediate, Verified 11/10/24 12:19) HIVES, itchy Sulfa (Sulfonamide Antibiotics) [SULFA (SULFONAMIDE ANTIBIOTICS)] Allergy (Intermediate, Verified 11/10/24 12:19) HIVES oxycodone [From PERCODAN] Adverse Reaction (Severe, Verified 11/10/24 12:19) DIAPHORESIS, PASSED OUT chantix Adverse Reaction (Unknown, Verified 11/10/24 12:19) weird drreams nausea adhesive tape Adverse Reaction (Verified 11/10/24 12:19) skin tear Post menopausal: Yes HPI Comments Details: Presenting referred from PCP regarding abnormal pelvic MRI. 10/09/2024 pelvic MRI showed endometrial thickness of 11 mm The patient gives No history of abnormal vaginal bleeding Last co testing in 10/09 was negative PFSH Medical History Increased endometrial stripe thickness Cervical cancer screening declined Allergic rhinitis Bilateral ankle pain History of ETT HTN (hypertension) Osteopenia Arthritis Hx of osteoporosis Bilateral temporomandibular joint disorder Dysfunction of left eustachian tube Intermittent lightheadedness Tinnitus of left ear Maxillary sinusitis Chronic pain in left foot External hemorrhoids Capsulitis of left foot Corrigan's neuroma of left foot Obesity (BMI 30-39.9) Vitamin D deficiency IFG (impaired fasting glucose) Adenoma of left adrenal gland Degenerative disc disease Barretts esophagus Lung nodule < 6cm on CT GERD (gastroesophageal reflux disease) IBS (irritable bowel syndrome) Essential hypertension Surgical History History of esophagogastroduodenoscopy (EGD) H/O colonoscopy Hx of foot surgery History of repair of hiatal hernia History of laparoscopic cholecystectomy History of sinus surgery History of excision of pilonidal cyst History of left knee surgery Abdominal hernia Family History Father No problems noted. Mother HTN (hypertension) History of cataract Maternal Grandmother Cervical cancer Maternal Grandfather History of heart attack Brother No problems noted. Brother No problems noted. Brother No problems noted. Sister No problems noted. Other Mental health disorder Substance use disorder Social History Housing: House Patient Tobacco Use Status: Former Tobacco user Years Smoked: 40 years e-Cigarette/Vaping Use: Never Used Current occupational status: unemployed Cognitive needs: No Hearing needs: No Vision needs: Yes Female Reproductive History Menstrual Age of Menarche: 9 Review of Systems Const All systems reviewed & are unremarkable except as noted in HPI and below Physical Exam Vital Signs: Last Vital Signs BP 126/74 11/10/24 12:13 BMI result Body Mass Index 34.9 General: Yes no CVA tenderness External Female Exam: normal external appearance and normal appearance of the urethra Speculum Exam - Vagina: normal appearance of the vagina, normal palpation, lesion (Right vaginal polyp) and no masses Speculum Exam - Cervix: normal appearance of the cervix, normal palpation, no lesions, no masses and nontender Bimanual exam- vagina & uterus: normal bimanual exam, normal palpation, uterine size normal, normal palpation, uterine shape normal, No Cervical tenderness present and non-tender Bimanual Exam- Adnexa, other: normal adnexae Back/Spine/Pelvis Back: no CVA tenderness Office Procedures Endometrial Biopsy Details: The patient was counseled regarding the indication and benefits of endometrial sampling to rule out endometrial pathology including not limited to endometrial hyperplasia or endometrial cancer and others; The alternatives (Either do nothing vs. hysteroscopy D&C) & the risks were discussed with the patient including but not limited: pain, uterine perforation, bleeding, infection, possible injury to bladder, bowel, ureter, possible need for blood transfusion with all its possible risks. The patient verbalized understanding all questions answered and signed consent. The patient was placed into the dorsal lithotomy position; a speculum was inserted in the vagina. Using aseptic technique for the procedure, the cervix was cleansed with Betadine. The anterior lip of the cervix was grasped with a single tooth tenaculum. The uterus was sounded to 7 cm with a 4 mm Pipelle was used. Tissues samples were obtained and placed in formalin, in a patient labeled container and sent to the pathology department. At the end of the procedure, there was minimal bleeding noted The patient tolerated the procedure well and was discharged in good condition with the following instructions: Nothing in the vagina until the bleeding stops. No sex until the bleeding stops, to call if any of the following occurs: fever (>100.4), flu-like symptoms, abdominal pain, heavy bleeding, four smelling vaginal discharge. The patient was instructed to schedule a Follow up appointment in 2 weeks to discuss pathology results of the biopsy and treatment options. This note was generated with a voice recognition program. Some errors may have been overlooked during the review of this note. Sometimes these errors may affect the content or meaning of a given sentence. [id number] Biopsy Assessment & Plan Assessment & Plan (1) Thickened endometrium: Code(s): R93.89 - Abnormal findings on diagnostic imaging of other specified body structures Category: Medical Plan: Co testing done. Discussed with the patient endometrial thickness above 4 mm in menopause , the differential diagnosis of a thickened endometrium includes but not limited to endometrial polyp, hyperplasia or carcinoma. Explained to the patient that endometrial each thickness is less predictive of endometrial neoplasia in asymptomatic patients, i.e. those without postmenopausal uterine bleeding. The sensitivity and specificity for detecting endometrial carcinoma at an endometrial thickness of >= 5mm was 83 and 72 percent, respectively; this is lower than in patients with bleeding. Studies have shown that postmenopausal patients without uterine bleeding who had an endometrial thickness >11 mm had an endometrial carcinoma risk of 6.7 percent; this risk is similar to postmenopausal patients with bleeding and an endometrial thickness >5 mm. Recommended endometrial sampling to rule endometrial pathology via either office endometrial biopsy or diagnostic hysteroscopy/D&C with possible polypectomy/myomectomy. All pros and cons, risks and benefits of each approach were discussed with the patient, the patient decided to proceed with endometrial biopsy. EMB done, see procedure note Instructions given the patient to schedule an EMB follow-up appointment within 2 weeks. All questions answered, the patient verbalized (2) Vaginal polyp: Code(s): N84.2 - Polyp of vagina Category: Medical Plan: Discussed with the patient the finding on pelvic exam, right vaginal polyp, recommended vaginal excision. The patient will schedule an appointment for vaginal polypectomy. Orders: Orders AMB Endometrial Biopsy Today R93.89 - Abnormal findings on diagnostic imaging of other specified body structures Coding Level of Care Code New Pt Level 3 (06509) Procedure Only Diagnoses Thickened endometrium R93.89 Vaginal polyp N84.2 CPT Codes Endometrial Biopsy - CPT: 23600-Rytpafhrcpl Biopsy ([id number])
--- OUTSIDE RECORDS SUMMARY | 2024-11-10 14:11 | XMS_ITS | Clinical Summary ---
Author Organization [facility] Address [address] [place] [address] Care Team Providers Care Manager House Name Role Phone Unavailable Primary Care Provider Unavailabl e Source Comments PLEASE NOTE, if this patient is a minor, it may be UNLAWFUL to discuss sensitive information that is contained in these records (such as FAMILY PLANNING, MENTAL HEALTH or SUBSTANCE ABUSE) with the minor patient's parent or other person without the patient's specific authorization.[facility] Immunizations Immunization Administration Dates Next Due Moderna COVID-19 Vaccine, re d cap blue label, 12+ Primary Series 11/28/2020,10/31/2020 Social History Tobacco Use Types Packs/Day Years Used Date Smoking Tobacco: Never Assessed Social Connections Answer Date Recorded Social Connections and Isolation 0 12/20/2023 Financial Resource Strain Answer Date R ecorded Financial Resource Strain 0 2023 Stress Answer Date Recorded Stress 0 12/20/2023 Physical Activity Answer Date Recorded Physical Activity 0 12/20/2023 Food Insecurity Answer Date Recorded Food 0 12/20/2023 Transportation Needs Answer Date Record ed Transportation 0 12/20/2023 Housing Stability Answer Date Recorded Housing 0 12/20/2023 Safety and Environment Answer Date Keshawn rded Safety 0 12/20/2023 Utilities Answer Date Recorded Utilities 0 12/20/2023 Employment Answer Date Recorded Employment 0 12/20/2023 Comments Unknown Sex and Gender Information Value Date Recorded Sex Assigned at Not on file Legal Sex Female 6:01 AM PDT Gender Identity Not on file Sexual Orientation Not on file Plan of Treatment Health Maintenance Due Date Last Done Comments Diabetes Screening 1960 Hepatitis C Screening 1960 Lipid Screening 1960 Tobacco Screening 1960 Hypertension Screening (#1) 1976 Breast Cancer Screening (Mammogram) 1998 CT Colonography 2003 Colonoscopy 2003 Colorectal Cancer Screening 2003 FIT/gFOBT 2003 Fecal DNA 2003 Flexible Sigmoidoscopy 2003 Imm-Pneumococcal 65+ (2 of 2 - PCV) 03/24/2020 03/24/2019 Bone Density Screening 2023 Falls Prevention 2023 [id number] (3 season) 2024 021, 10/31/2020 Imm-Influenza (#1) 2024 04/18/2020, 1 , 05/06/2018, Additional history exists Alcohol and Drug Screen 07/22/2024 Depression Annual Screen 07/22/2024 Imm-DTaP/Tdap/Td (2 - Td or Tdap) 05/08/2029 019 Imm-Zoster, Recombinant Completed 06/17/2020, 04/18 Insurance [place] [employer] [place] Member Subscriber Plan / Payer (Ef fective 2020-Present) Name:Erika Nguyen Relation to Subscriber:Self Name:Erika Nguyen Payer ID:[id number] Group ID:[id number] Type:Indemnity Address: [facility] [id number] [place] [address]
--- OUTSIDE RECORDS SUMMARY | 2024-11-10 14:11 | XMS_ITS | Patient Health Record ---
Author Organization [facility] Address [address] [place] [address] Care Team Providers Care Ring Spinner Name Role Phone Anthony JAUREGUI, Lizzy Primary Care Provider Enoc Chow Unavailable [phone] Allergies Allergen (clinical drug ingredient) Drug/Non Drug Allergy [...] Activ e Sulfa Unknown Drug Allergy Active Results Component Value Reference Range Notes Pathology Reviewed date:12/15/2023 11:54:28 PM Interpretation: Performing Lab:[facility], [address] [place] [id number] Notes/Report: Name: Nicolas Ingram Age/Sex: 63/F : 1960 Unit#: [id number] Attend Dr: Enoc Gates Re12/06/23 Status : DEP SD Location: HO.SSS Disch: SPEC : [id number] RECD : 12/06/23-1320 STATUS: SRINIVAS GUILLERMO NUM: [id number] DEJON: 12/06/23-11[address] [facility] [address]: Enoc Gates ENTERED: 12/06/23 26 SP TYPE: Surgical OTHR DR: Lizzy Cruz MD ORDERED: HE Stain/3, Gross Micro L4 Diagnosis Cecum, polypectomy: Colonic mucosa with mild surface hyperplastic changes. Clinical History Pre-Op Dx: Encounter for screening for malignant neoplasm of colon Post-Op Dx: Colon po lyp, diverticulosis, hemorrhoids Microscopic Description Microscopic sections reviewed. Material Received Cecal polyp Gross Description Received in formalin labeled ?cecal polyp? is a 0.3 cm salazar-pink irregular tissue fragment, submitted in toto in a cassette labeled A. CEDS Copies To: Lizzy Cruz MD [facility] [place] [address] Enoc Gates [address] [place] [address] [id number] [place] [id number] Signed (si gnature on file) Nithin Ron MD 12/10/23 0904 END OF REPORT Reason For Referral No Information Medications Medication SIG (Take, Route, Frequency, Duration) Notes [...] or discomfort for 30 day(s) 09/18/2023 Active Social History Tobacco Use: Social History Observation Description Date Details (start date - stop date) Former Smoker NA - NA Tobacco Use/Smoking Question Answer Notes Patient is a former smoker How long has it been since you last smoked? 1-5 years Section Notes: Nonsmoker for 1 month; no significant alcohol. She is under a great deal of stress in relation to her 's recent diagnosis of gastric lymphoma, as well as her brothers diagnosis of cancer as well. Nonsmoker for 1 month; no si gnificant alcohol. Smokes 1/2 ppd; no significa nt alcohol. No significant alcohol. Former smoker Problems Problem Type SNOMED Code ICD Code Onset Dates Problem Status W/U Status Risk Notes Problem 134111797 Encounter for screening for malignant neoplasm of colon (Z12.11) Active confirmed Problem History of adenomatous polyp of colon (818138947) History of adenomatous polyp of colon (Z86.010) Active confirmed Problem Diverticular disease of colon (401168350) Diverticulosis of large intestine without perforation or abscess without bleeding (K57.30) Active confirmed Problem 898190251 Irritable bowel syndrome with diarrhea (K58.0) Active confirmed Problem 134813069 Gastroesophageal reflux disease without esophagitis (K21.9) Active confirmed Encounters Encounter Location Date Provider Diagnosis [facility] [place] [address] [place] [phone] 12/06/2023 Enoc Gates Encounter for scre ening [...] hemorrhoids (ICD-10 - K64.8) Plan Of Treatment Future Test Test Name Order Date UPPER GI ENDOSCOPY 02/11/2013 COLONOSCOPY 03/20/2018 COLONOSCOPY 09/17/2023 Insurance Providers Payer Name Payer Address Payer Phone Subscriber Number Group Number Insured Name Patient Relationship to Insured Coverage Start Date Coverage End Date MEDICARE OF [place] [address] [place] [address] [phone] [id number] ALEJANDRO DOHERTY Self - patient is the insured [facility] [address] [place], [place] [id number] [phone] [id number] ALEJANDRO DOHERTY Self - patient is the insured Medical (General) History Medical History History ICD Code GERD WITH ASSOCIATED RIVERA 'S ESOPHAGUS- EGD in 11/2007 and in 02/2013-no Rivera's seen--no esophagitis, minimal HH HTN Denies CA,DM,CVA,Lung disease,renal dise ase Neg. colonoscopy in 11/2007 [...]
--- OUTSIDE RECORDS SUMMARY | 2024-11-10 14:11 | XMS_ITS ---
Author Organization [facility] Address [address] [place] [address] Care Team Providers Care Green House Manager Name Role Phone Anthony JAUREGUI, Lizzy Primary Care Provider Enoc Chow [phone] Allergies Allergen (clinical drug ingredient) Drug/Non Drug [...] Patient presents today for a recall colonoscopy Medications Medication SIG (Take, Route, Frequency, Duration) Notes Start Date End Date Status Metoprolol Succinate ER 25 MG Oral for 90 Active Lisinopril 10 MG TAKE 1 TABLET BY NORAH EVERY DAY Oral for 90 Active Calcium [...] you last smoked? 1-5 years Section Notes: No significant alcohol. Former smoker Problems Problem Type SNOMED Code ICD Code Onset Dates Problem Status W/U Status Risk Notes Problem History of adenomatous polyp of colon (438656085) History of adenomatous polyp of colon (Z86.010) Active confirmed Vital Signs Temperature 97.8 degrees Fahrenheit 09/17/19 24 Blood pressure systolic 00 mm Hg 09/17/19 24 Blood pressure diastolic 00 mm Hg 024 Height 63 in 09/17/2023 Weight 195 lbs 09/17/2023 BMI 34.54 kg/m2 09/17/2023 Encounters Encounter Location Date Provider Diagnosis [facility] [address] [place] [address] 09/17/2023 Enoc Gates Irritable bowel syndrome with diarrhea K58.0 ; Encounter for screening for malignant neoplasm of colon Z12.11 and History of adenomatous polyp of colon Z86.010 Assessments Encounter Date Diagnosis (ICD Code) Assessment Notes Treatment Notes Treatment Clinical Notes Section Notes 09/17/2023 Irritable bowel syndrome with diarrhea (ICD-10 - K58.0) Overall, Clotilde appears quite well. We did have a detailed discussion today regarding her irritable bowel syndrome with episodes of the urgency and loose bowel movements. This has been a long-standing problem for her and I don't think she needs any particular workup for this given all of the negative studies in the past. I shall give her a trial of dicyclomine to use either p.r.n. or to use before any particular meals that might induce her symptoms. I did recommend a colonoscopy for further screening given her history of a tubular adenoma removed over 5 years ago. We did review the rationale for this in regard to colon cancer prevention. Full consent was obtained for this, including risks of bleeding and perforation. The procedure will be done monitored anesthesia care. Clotilde was comfortable with this plan. Thank you again for allowing me to participate in Clotilde's care. I shall continue to keep you advised of her progress. 09/17/2023 Encounter for screening for malignant neoplasm of colon (ICD-10 - Z12.11) Overall, Clotilde appears quite well. We did have a detailed discussion today regarding her irritable bowel syndrome with episodes of the urgency and loose bowel movements. This has been a long-standing problem for her and I don't think she needs any particular workup for this given all of the negative studies in the past. I shall give her a trial of dicyclomine to use either p.r.n. or to use before any particular meals that might induce her symptoms. I did recommend a colonoscopy for further screening given her history of a tubular adenoma removed over 5 years ago. We did review the rationale for this in regard to colon cancer prevention. Full consent was obtained for this, including risks of bleeding and perforation. The procedure will be done monitored anesthesia care. Clotilde was comfortable with this plan. Thank you again for allowing me to participate in Clotilde's care. I shall continue to keep you advised of her progress. 09/17/2023 History of adenomatous polyp of colon (ICD-10 - Z86.010) Overall, Clotilde appears quite well. We did have a detailed discussion today regarding her irritable bowel syndrome with episodes of the urgency and loose bowel movements. This has been a long-standing problem for her and I don't think she needs any particular workup for this given all of the negative studies in the past. I shall give her a trial of dicyclomine to use either p.r.n. or to use before any particular meals that might induce her symptoms. I did recommend a colonoscopy for further screening given her history of a tubular adenoma removed over 5 years ago. We did review the rationale for this in regard to colon cancer prevention. Full consent was obtained for this, including risks of bleeding and perforation. The procedure will be done monitored anesthesia care. Clotilde was comfortable with this plan. Thank you again for allowing me to participate in Clotilde's care. I shall continue to keep you advised of her progress. Plan Of Treatment Medication Medication Name Sig Start Date Stop [...] Follow Up: prn, Reason: Progress Notes * ALEJANDRO INGRAM ADOB: (63 yo F)Acc No.[id number]:09/17/2023 Progress Notes Patient:?RAND INGRAM Provider:?Enoc Gates MD :1960???Age:63 Y???Sex:Female D ate:09/17/2023 Address:[address] [place] [address] Pcp:Lizzy Cruz MD Subjective: * Chief Complaints: * ???Patient presents today fo r a recall colonoscopy * HPI: ???incontinence:? I saw Clotilde in consultation today in regard to evaluation of her irritable bowel syndrome, personal history of a tubular adenoma, and need for colorectal cancer screening. ?I last saw Clotilde in March of 2018, at which time she underwent a followup screening colonoscopy with removal of a small tubular adenoma. She has had a very long-standing history of irritable bowel syndrome with intermittent episodes of urgency and diarrhea. She does have some mild abdominal cramps but abdominal discomfort is not a particularly significant part of her symptoms. The episodes can be related to stress or certain foods such as salads. She denies any signs of bleeding, fevers, significant abdominal pain, jaundice, nor weight loss. She enjoys a good appetite, without any significant heartburn or dysphagia. She has had extensive negative workups for her GI complaints over the years including colonoscopies with unremarkable biopsies and negative laboratories for celiac disease. ?Laboratories last February revealed normal chemistries and liver enzymes. * ROS:?General/Constitutional:?Change in appetite?denies.?Chills?denies.?Fatigue?denies.?Ophthalmologic:?Patient denies? Negative..?ENT:?Patient denies?Negative..?Respiratory:?Patient denies?No coughing/hemoptysis..?Cardiovascular:?Patient denies? No chest pain/orthopnea..?Gastrointestinal:?Comments?See HPI for details.?Genitourinary:?Patient denies? No dysuria/hematuria..?Musculoskeletal:?Patient denies? No specific arthralgias/myalgias..?Skin:?Patient denies?No rash/pruritus..?Neurologic:?Patient denies? No headaches/seizures..?Psychiatric:?Patient denies?Negative..? * Medical History:? * Surgical History:?STATUS POS T LAPAROSCOPIC HIATAL HERNIA SURGERY--2001-Dr. Rodriguez HISTORY OF INGUINAL HERNIA SURGERY HISTORY OF SINUS SURGERY HISTORY OF KNEE SURGERY PILONIDAL CYST [facility] in 03/2014 Left foot surgery 03/2022 * Hospitalization/Major Diagno stic Procedure:?No Hospitalization History. * Family History:?Father: dece ased.?Mother: .?Paternal Grand Father: , diagnosed with Diabetes.?Paternal Grand Mother: , diagnosed with Diabetes.?Siblings: The patients brother was diagnosed with blastic plasmacytoid dendritic cell neoplasm..? No colorectal cancer in the immediate family. The patients biological father had a history of bleeding uclers. * Social History:?Tobacco Use:?Tobacco Use/Smoking?Patient is a?former smoker,?How long has it been since you last smoked??1-5 years.?Drugs/Alcohol:?Alcohol Screen?Points: 1, Interpretation: Negative.?Miscellaneous:?Marital status: - of Burkitt's lymphoma of the stomach in 07/2013. 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 ???No significant alcohol. Former smoker. * Medications:?TakingVitamin B Complex Vitamin D3 Magnesium Calcium Lisinopril 10 MG Tablet TAKE 1 TABLET BY MOUTH EVERY DAY Oral Metoprolol Succinate ER 25 MG Tablet Extended Release 24 Hour Oral Medication List reviewed and reconciled with the patientTaking Vitamin B Complex Taking Vitamin D3 Taking Magnesium Taking Calcium Taking Lisinopril 10 MG Tablet TAKE 1 TABLET BY MOUTH EVERY DAY Oral Taking Metoprolol Succinate ER 25 MG Tablet Extended Release 24 Hour Oral Medication List reviewed and reconciled with the patient * Allergies:?ChantixMorphine S ulfatePercocetSeasonal ICSulfaAdhesivenarcoticsPercodanyes[Allergies Verified] Objective: * Vitals:?Wt: 195 lbs, Ht: 63 in, BMI:34.54 Index, BP: 00/00 mm Hg, Temp: 97.8. * Examination: ???General Examination: ?GENERAL APPEARANCE:?pleasant, well nourished, well developed, in no acute distress.?EYES:?sclera non-icteric.?ORAL CAVITY:?mucosa moist.?NECK/THYROID:?no cervical lymphadenopathy, neck supple.?SKIN:?nonjaundiced, no spider angiomata..?HEART:?S1, S2 normal.?LUNGS:?clear to auscultation bilaterally.?ABDOMEN:?normal bowel sounds, no guarding or rigidity, no hepatosplenomegaly, no masses palpable, soft, nontender, nondistended..?EXTREMITIES:?no edema.?NEUROLOGIC:?alert and oriented.? Assessment: * Assessment: 1.?Irritable bowel syndrome with diarrhea - K58.0 (Primary)?2.?Encounter for screening for malignant neoplasm of colon - Z12.11?3.?History of adenomatous polyp of colon - Z86.010? Overall, Clotilde appears quite well. We did have a detailed discussion today regarding her irritable bowel syndrome with episodes of the urgency and loose bowel movements. This has been a long-standing problem for her and I don't think she needs any particular workup for this given all of the negative studies in the past. I shall give her a trial of dicyclomine to use either p.r.n. or to use before any particular meals that might induce her symptoms. I did recommend a colonoscopy for further screening given her history of a tubular adenoma removed over 5 years ago. We did review the rationale for this in regard to colon cancer prevention. Full consent was obtained for this, including risks of bleeding and perforation. The procedure will be done monitored anesthesia care. Clotilde was comfortable with this plan. Thank you again for allowing me to participate in Clotilde's care. I shall continue to keep you advised of her progress. Plan: * Treatment: 2.?Encounter for screening f or malignant neoplasm of colon?Procedure: COLONOSCOPY (Ordered for 09/17/2023) 3.?History of adenomatous polyp of colon?Procedure: COLONOSCOPY (Ordered for 09/17/2023)* with MACsched for 12/06/23 at 1:30 pmmiralax * Procedure Codes:?3017F COLOR ECTAL CA SCREEN DOC [id number] TOBACCO [id number] BP SCR NOT PRFRM REC REASON NOS * Preventive Medicine:? ??Counseling:?Care goal follow-up plan:?Above Normal BMI Follow-up?Giving encouragement to exercise,?BMI management provided?Yes.? ??Urinary Incontinence:?Urinary Incontinence?Assessment:?Present,?Plan of care documented:?Yes.? * Follow Up:?prn * * Sign off status: Completed true * Provider:?Enoc Gates MD Date:? 024 Generated for Kasi garcia/Lilly/Reeneitting on:?11/10/2024 02:11 PM EDT History and Physical Notes * HPI (History of Present Illness) Category Sub-Category Detail Notes Category Not es incontinence I saw Clotilde in consultation today in regard to evaluation of her irritable bowel syndrome, personal history of a tubular adenoma, and need for colorectal cancer screening. I last saw Clotilde in March of 2018, at which time she underwent a followup screening colonoscopy with removal of a small tubular adenoma. She has had a very long-standing history of irritable bowel syndrome with intermittent episodes of urgency and diarrhea. She does have some mild abdominal cramps but abdominal discomfort is not a particularly significant part of her symptoms. The episodes can be related to stress or certain foods such as salads. She denies any signs of bleeding, fevers, significant abdominal pain, jaundice, nor weight loss. She enjoys a good appetite, without any significant heartburn or dysphagia. She has had extensive negative workups for her GI complaints over the years including colonoscopies with unremarkable biopsies and negative laboratories for celiac disease. Laboratories last February revealed normal chemistries and liver enzymes. Examination Category Sub-Category Detail Notes Category Not es General Examination GENERAL APPEARANCE: pleasant , well [...]
--- OUTSIDE RECORDS SUMMARY | 2024-11-10 14:11 | XMS_ITS | Patient Health Record ---
Author Organization [facility] Address [address] [place] [address] Care Team Providers Care Slot Operations Director Name Role Phone Anthony JAUREGUI, Lizzy Turcios Primary Care Provider Un available Farzaneh Villaseñor Unavailable [phone] Allergies Allergen (clinical drug ingredient) Drug/Non Drug Allergy documented on EMR Reaction Allergy Type Onset Date Status sulfamethoxazole / trimethoprim Bactrim Hives Drug Allergy Active acetaminophen / oxycodone Percocet cold sweats/pass outt Drug Allergy Active Percodan cold sweats/pass outt Drug Allergy Active Adhesive Unknown Allergy Active morphine Morphine Hives Drug Allergy Active Reason For Referral No Information Medications Medication SIG (Take, Route, Frequency, Duration) Notes Start Date End Date Status Dicyclomine HCl Acti ve buPROPion HCl ER (XL) 150 MG Oral for 90 Active Lisinopril 10 MG Oral for 90 A ctive Caltrate 600+D3 Acti ve Vitamin B 12 Active Vitamin E Active Calcium Citrate 250 MG 1 tablet Orally O nce a day for 30 day(s) 02/09/2020 Not-Taking Vitamin D3 Active Immunizations Vaccine Route Administration Date Status Comme nts COVID-19 Moderna Vaccine Unknown 10/31/2020 Administered Second Dose:11/19 Social History Tobacco Use: Social History Observation Description Date Details (start date - stop date) Never Smoker NA - NA Tobacco Use/Smoking Question Answer Notes Are you a: nonsmoker Additional Findings: Tobacco Non-User Cu rrent non-smoker, but past smoking history unknown Alcohol Screen Question Answer Notes Did you have a drink containing alcohol in the p ast year? No Points 0 Interpretation Negative Tobacco use other than smoking: Question Answer Notes Are you an other tobacco user? 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) Active confirmed Plan Of Treatment Pending Test Test Name Order Date X ray : Foot, left 3V 02/17/2020 X ray : Foot, right 3V 10/14/2020 X ray : Foot, right 3V 02/17/2020 Insurance Providers Payer Name Payer Address Payer Phone Subscriber Number Group Number Insured Name Patient Relationship to Insured Coverage Start Date Coverage End Date [employer] [facility] [facility] [id number] [place] [address] [id number] Erika Reyes Self - patient is the insured Medical (General) History Medical History History ICD Code Arthritis Back,Hip,and Knee pain Gall bladder problems High blood pressure Osteoporosis Psoriasis/eczema raynauds disease Reflux ( GERD) Sciatica chronic sinusitis Measles Chicken pox Surgical History Surgery Date(Month/Year) gall bladder 03/2015 Acid Reflux surgery
--- OUTSIDE RECORDS SUMMARY | 2024-11-10 14:11 | XMS_ITS ---
Author Organization [facility] Address [address] [place] [address] Care Team Providers Care Hot Tamale Worker Name Role Phone Anthony JAUREGUI, Lizzy Primary Care Provider Enoc Chow Unavailable [phone] REASON FOR VISIT screening,hx polyps Problems Problem Type SNOMED Code ICD Code Onset Dates Problem Status W/U Status Risk Notes Problem Diverticular disease of colon (625060991) Diverticulosis of large intestine without perforation or abscess without bleeding (K57.30) Active confirmed Encounters Encounter Location Date Provider Diagnosis [facility] Outpatient [address] [place] [id number] 12/06/2023 Enoc Gates Encounter for scre ening [...] * ALEJANDRO INGRAM ADOB: (64 yo F)Acc No.[id number]:12/06/2023 COLON WITH MAC Patient:?RAND INGRAM Provider:?Enoc Gates MD :1960???Age:63 Y???Sex:Female D ate:12/06/2023 Address:[address] [place], [place] [id number] Pcp:Lizzy Cruz MD Subjective: * Chief Complaints: * ???1. Screening,hx polyps. * Medical History:? Objective: * Vitals:? Assessment: * Assessment: 1.?Encounter for screening c olonoscopy - Z12.11 (Primary)???2.?Colon polyps - K63.5???3.?Diverticulosis of large intestine without perforation or abscess without bleeding - K57.30???4.?Other hemorrhoids - K64.8??? Plan: * Treatment: * Procedure Codes:?21328 COLON OSCOPY AND BIOPSY, Modifiers: PT , 0529F INTRVL 3+YRS PTS CLNSCP DOCD, 0528F RCMND FLW-UP 10 YRS DOCD, Modifiers: 1P * * The named appointment provid er may or may not be the originator of this progress note, and it is not deemed complete until electronically signed by the appointment provider. Sign off status: Pending * Provider:?Enoc Gates MD Date:? 024 Generated for Kasi garcia/Lilly/eTdontaesmitting on:?11/10/2024 02:10 PM EDT
== END 2024-11-10 14:49 | disposition home or self-care (01) ==
LOC: HO.HWS 11:38
PROVIDERS: PCP Internal Medicine; Visit Provider Obstetrics & Gynecology
DX: R93.89 Abnormal findings on diagnostic imaging of other specified body structures (principal); N84.2 Polyp of vagina
CPT/HCPCS: 58100; 99203

== ENCOUNTER 2024-12-02 09:52 | Outpatient (AMB) | payer MEDICARE, BC, SELFPAY ==
--- NOTE | 2024-12-02 09:56 | MHC.OFFVIS ---
Vital Signs 12/02/24 09:57 Height 5 ft 3 in Weight 197 lb BMI 34.9 Intake Visit Reasons: Biopsy Follow up Director Of Patient Care Required: No Information Interpreted: non-clinical & clinical Accompanied by: Self / Same As Patient Allergies morphine [MORPHINE] Allergy (Intermediate, Verified 12/02/24 09:58) HIVES, itchy Sulfa (Sulfonamide Antibiotics) [SULFA (SULFONAMIDE ANTIBIOTICS)] Allergy (Intermediate, Verified 12/02/24 09:58) HIVES oxycodone [From PERCODAN] Adverse Reaction (Severe, Verified 12/02/24 09:58) DIAPHORESIS, PASSED OUT chantix Adverse Reaction (Unknown, Verified 12/02/24 09:58) weird drreams nausea adhesive tape Adverse Reaction (Verified 12/02/24 09:58) skin tear Post menopausal: Yes HPI Comments Details: The patient is presenting after endometrial biopsy. The patient has no complaints, no vaginal bleeding, no feverishness chills or abdominal pain. The endometrial biopsy pathology report showed the following: Superficial strips of benign endometrium and rare endocervical epithelium; no atypia identified [facility] Medical History Increased endometrial stripe thickness Cervical cancer screening declined Allergic rhinitis Bilateral ankle pain History of ETT HTN (hypertension) Osteopenia Arthritis Hx of osteoporosis Bilateral temporomandibular joint disorder Dysfunction of left eustachian tube Intermittent lightheadedness Tinnitus of left ear Maxillary sinusitis Chronic pain in left foot External hemorrhoids Capsulitis of left foot Corrigan's neuroma of left foot Obesity (BMI 30-39.9) Vitamin D deficiency IFG (impaired fasting glucose) Adenoma of left adrenal gland Degenerative disc disease Barretts esophagus Lung nodule < 6cm on CT GERD (gastroesophageal reflux disease) IBS (irritable bowel syndrome) Essential hypertension Surgical History History of esophagogastroduodenoscopy (EGD) H/O colonoscopy Hx of foot surgery History of repair of hiatal hernia History of laparoscopic cholecystectomy History of sinus surgery History of excision of pilonidal cyst History of left knee surgery Abdominal hernia Family History Father No problems noted. Mother HTN (hypertension) History of cataract Maternal Grandmother Cervical cancer Maternal Grandfather History of heart attack Brother No problems noted. Brother No problems noted. Brother No problems noted. Sister No problems noted. Other Mental health disorder Substance use disorder Social History Housing: House Patient Tobacco Use Status: Former Tobacco user Years Smoked: 40 years e-Cigarette/Vaping Use: Never Used Current occupational status: unemployed Cognitive needs: No Hearing needs: No Vision needs: Yes Female Reproductive History Menstrual Age of Menarche: 9 Review of Systems Const All systems reviewed & are unremarkable except as noted in HPI and below Reports as per HPI and Reports no additional complaints GI Reports no additional complaints Reports no additional complaints Physical Exam Vital Signs: BMI result Body Mass Index 34.9 Assessment & Plan Assessment & Plan (1) Thickened endometrium: Code(s): R93.89 - Abnormal findings on diagnostic imaging of other specified body structures Category: Medical Plan: Discussed with the patient the results of the endometrial biopsy. Discussed with the patient the sensitivity, specificity, positive and negative predictive value, of endometrial biopsy in detecting endometrial pathology including but not limited to endometrial hyperplasia, cancer and other pathology; instructed the patient to call in case vaginal bleeding occurs, the next step will be to proceed with a diagnostic hysteroscopy/D&C for further endometrial sampling evaluation to rule out endometrial pathology. All questions answered and the patient verbalized understanding and agreed with the plan. Coding Level of Care Code Est Pt Level 3 (60113) Diagnoses Thickened endometrium R93.89
[2024-12-02 09:57] VITALS: BMI 34.9
--- OUTSIDE RECORDS SUMMARY | 2024-12-02 10:39 | XMS_ITS ---
Author Organization [facility] Address [address] [place] [address] Care Team Providers Care Area Director Of Home Health Sales Name Role Phone Anthony JAUREGUI, Lizzy Primary Care Provider Enoc Chow [phone] REASON FOR VISIT screening,hx polyps Problems Problem Type SNOMED Code ICD Code Onset Dates Problem Status W/U Status Risk Notes Problem Diverticulosis o f large intestine without perforation or abscess without bleeding (K57.30) Active confirmed Encounters Encounter Location Date Provider Diagnosis [facility] Outpatient [address] [place], [place] [phone] 12/06/2023 Enoc Gates Encounter for scre ening [...] * ALEJANDRO INGRAM ADOB: (64 yo F)Acc No.[id number]:12/06/2023 COLON WITH MAC Patient:?RAND INGRAM Provider:?Enoc Gates MD :1960???Age:63 Y???Sex:Female D ate:12/06/2023 Address:[address] [place], [place] [id number] Pcp:Lizzy Cruz MD Subjective: * Chief Complaints: * ???1. Screening,hx polyps. * Medical History:? Objective: * Vitals:? Assessment: * Assessment: 1.?Encounter for screening c olonoscopy - Z12.11 (Primary)???2.?Colon polyps - K63.5???3.?Diverticulosis of large intestine without perforation or abscess without bleeding - K57.30???4.?Other hemorrhoids - K64.8??? Plan: * Treatment: * Procedure Codes:?03256 COLON OSCOPY AND BIOPSY, Modifiers: PT , [...] Gates MD Date:? 024 Generated for Kasi garcia/Lilly/Giansmitting on:?12/02/2024 10:39 AM EDT
--- OUTSIDE RECORDS SUMMARY | 2024-12-02 10:39 | XMS_ITS ---
Author Organization [facility] Address [address] [place] [address] Care Team Providers Care Psychological Assistant Name Role Phone Anthony JAUREGUI, Lizzy Primary Care Provider Enoc Chow [phone] Allergies Allergen (clinical drug ingredient) Drug/Non Drug [...] Problem History of adenomatous polyp of colon (618727366) History of adenomatous polyp of colon (Z86.010) Active confirmed Vital Signs Temperature 97.8 degrees Fahrenheit 09/17/19 24 Blood pressure systolic 00 mm Hg 09/17/19 24 Blood pressure diastolic 00 mm Hg 024 Height 63 in 09/17/2023 Weight 195 lbs 09/17/2023 BMI 34.54 kg/m2 09/17/2023 Encounters Encounter Location Date Provider Diagnosis [facility] [address] [place] [address] 09/17/2023 Enoc Gates Irritable bowel syndrome with [...] procedure will be done monitored anesthesia care. Clotlide was comfortable with this plan. Thank you [...] * ALEJANDRO INGRAM ADOB: (63 yo F)Acc No.[id number]:09/17/2023 Progress Notes Patient:?RAND INGRAM Provider:?Enoc Gates MD :1960???Age:63 Y???Sex:Female D ate:09/17/2023 Address:[address] [place] [address] Pcp:Lizzy Cruz MD Subjective: * Chief Complaints: [...] Procedure Codes:?3017F COLOR ECTAL CA SCREEN DOC [id number] TOBACCO [id number] BP SCR NOT PRFRM REC REASON NOS * Preventive Medicine:? ??Counseling:?Care goal follow-up plan:?Above Normal BMI Follow-up?Giving encouragement to exercise,?BMI management provided?Yes.? ??Urinary Incontinence:?Urinary Incontinence?Assessment:?Present,?Plan of care documented:?Yes.? * Follow Up:?prn * * Sign off status: Completed true * Provider:?Enoc Gates MD Date:? 024 Generated for Ksai garcia/Lilly/Giansmitting on:?12/02/2024 10:39 AM EDT History and Physical Notes * HPI [...]
--- OUTSIDE RECORDS SUMMARY | 2024-12-02 10:39 | XMS_ITS | Clinical Summary ---
Author Organization [facility] Address [address] [place] [address] Care Team Providers Care Machine Packager Name Role Phone Unavailable Primary Care Provider [...] Bone Density Screening 2023 Falls Prevention 2023 [id number] (3 season) 2024 021, 10/31/2020 Imm-Influenza (#1) 2024 04/18/2020, 1 , 05/06/2018, Additional history exists Alcohol and Drug Screen 07/22/2024 Depression Annual Screen 07/22/2024 Imm-DTaP/Tdap/Td (2 - Td or Tdap) 05/08/2029 019 Imm-Zoster, Recombinant Completed 06/17/2020, 04/18 Insurance [employer] [employer]/ [place] Member Subscriber Plan / Payer (Ef fective 2020-Present) Name:Erika Nguyen Relation to Subscriber:Self Name:Erika Nguyen Payer ID:[id number] Group ID:[id number] Type:Indemnity Address: [facility] [address] [place] [address]
--- OUTSIDE RECORDS SUMMARY | 2024-12-02 10:39 | XMS_ITS | Patient Health Record ---
Author Organization [facility] Address [address] [place] [address] Care Team Providers Care Women'S Basketball Coach Name Role Phone Anthony JAUREGUI, Lizzy Primary Care Provider Enoc Chow Unavailable [phone] Allergies Allergen (clinical drug ingredient) Drug/Non Drug [...] Pathology Reviewed date:12/15/2023 11:54:28 PM Interpretation: Performing Lab:[facility], [address] [place] [phone] Notes/Report: Name: Nicolas Ingram Age/Sex: 63/F : 1960 Unit#: [id number] Attend Dr: Enoc Gates Re12/06/23 Status : DEP SD Location: HO.SSS Disch: SPEC : [id number] RECD : 12/06/23-1320 STATUS: SRINIVAS GUILLERMO NUM: [id number] DEJON: 12/06/23-[address] [facility] [address]: Enoc Gates ENTERED: 12/06/23 26 [...] A. CEDS Copies To: Lizzy Cruz MD [facility] [place] [address] Enoc Gates [address] [place] [address] [id number] [place] [id number] Signed (si gnature on file) Nithin Ron [...] Problem Status W/U Status Risk Notes Problem [id number] Encounter for screening for malignant neoplasm of colon (Z12.11) Active confirmed Problem History of adenomatous polyp of colon (119323093) History of adenomatous polyp of colon (Z86.010) Active confirmed Problem Diverticular disease of colon (555491037) Diverticulosis of large intestine without perforation or abscess without bleeding (K57.30) Active confirmed Problem 704725086 Irritable bowel syndrome with diarrhea (K58.0) Active confirmed Problem 121698936 Gastroesophageal reflux disease without esophagitis (K21.9) Active confirmed Encounters Encounter Location Date Provider Diagnosis [facility] Outpatient [address] [place] [phone] 12/06/2023 Enoc Gates Encounter for scre ening [...] [place] [address] [place] [address] [id number] ALEJANDRO DOHERTY Self - patient is the insured [facility] [address] [place], [place] [phone] [id number] ALEJANDRO DOHERTY Self - patient is the insured Medical (General) History Medical History History ICD Code GERD WITH ASSOCIATED RIVERA 'S ESOPHAGUS- EGD in 11/2007 and in 02/2013-no Rivera's seen--no esophagitis, minimal HH HTN Denies [place],DM,CVA,Lung disease,renal dise ase Neg. colonoscopy in 11/2007 [...]
--- OUTSIDE RECORDS SUMMARY | 2024-12-02 10:39 | XMS_ITS | Patient Health Record ---
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) Active confirmed Problem 033808235 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) Active confirmed Plan Of Treatment Pending Test Test Name Order Date X ray : Foot, left 3V 02/17/2020 X ray : Foot, right 3V 10/14/2020 X ray : Foot, right 3V 02/17/2020 Insurance Providers Payer Name Payer Address Payer Phone Subscriber Number Group Number Insured Name Patient Relationship to Insured Coverage Start Date Coverage End Date [facility] [address] [place] [address] [phone] [id number] Erika Reyes Self - patient is the insured Medical (General) History Medical History History ICD Code Arthritis Back,Hip,and Knee pain Gall bladder problems High blood pressure Osteoporosis Psoriasis/eczema raynauds disease Reflux ( GERD) Sciatica chronic sinusitis Measles Chicken pox Surgical History Surgery Date(Month/Year) gall bladder 03/2015 Acid Reflux surgery
== END 2024-12-02 10:05 | disposition home or self-care (01) ==
LOC: HO.HWS 09:53
PROVIDERS: PCP Internal Medicine; Visit Provider Obstetrics & Gynecology
DX: R93.89 Abnormal findings on diagnostic imaging of other specified body structures (principal)
CPT/HCPCS: 99213

== ENCOUNTER → 2024-12-02 09:52 | Outpatient (BNVA) | payer MEDICARE, BC, SELFPAY | PROVIDERS: PCP Internal Medicine; Visit Provider Obstetrics & Gynecology | DX: R93.89 Abnormal findings on diagnostic imaging of other specified body structures (principal) | CPT/HCPCS: 20610; 99212 ==

== ENCOUNTER 2025-03-12 09:02 | Outpatient (REF) | payer MEDICARE, BC, SELFPAY ==
--- OUTSIDE RECORDS SUMMARY | 2025-03-12 09:15 | XMS_ITS | Clinical Summary ---
Author Organization [facility] Address [address] [place] [address] Care Team Providers Care Recapper Name Role Phone Unavailable Primary Care Provider [...] Fecal DNA 2003 Flexible Sigmoidoscopy 2003 Imm-Pneumococcal 50+ (2 of 2 - PCV) 03/24/2020 03/24/2019 Bone Density Screening 2023 Falls Prevention 2023 [id number] ( season) 2024 021, 10/31/2020 Alcohol and Drug Screen 07/22/2024 Depression Annual Screen 07/22/2024 Imm-Influenza (#1) 2025 04/18/2020, 1 , 05/06/2018, Additional history exists Imm-DTaP/Tdap/Td (2 - Td or Tdap) 05/08/2029 019 Imm-Zoster, Recombinant Completed 06/17/2020, 04/18 Insurance [place] [employer]
--- OUTSIDE RECORDS SUMMARY | 2025-03-12 09:15 | XMS_ITS | Patient Health Record ---
Author Organization [facility] Address [address] [place] [address] Care Team Providers Care Compound Finisher Name Role Phone Anthony JAUREGUI, Lizzy Turcios Primary Care Provider Un available Farzaneh Villaseñor Unavailable [phone] Allergies Allergen (clinical drug ingredient) Drug/Non Drug [...] ve buPROPion HCl ER (XL) 150 MG Oral; Duration: 90 Active Lisinopril 10 MG Oral; Duration: 90 Active Caltrate 600+D3 Acti ve Vitamin B 12 Active Vitamin E Active Calcium Citrate 250 MG 1 tablet Orally O nce a day; Duration: 30 day(s) 02/09/2020 Not-Taking Vitamin D3 Active [...] Problem Status W/U Status Risk Notes Problem Acquired hammer toe of left foot (828698900953 9103) Hammer toe of left foot (M20.42) Active confirmed Problem Plantar nerve lesion (231177336) Neuroma of second interspace of right foot (G57.61) Active confirmed Problem Plantar nerve lesion (812536116) 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.62) Active confirmed Problem 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) Active confirmed Plan Of Treatment Pending Test Test Name Order Date X ray : Foot, left 3V 02/17/2020 X ray : Foot, right 3V 10/14/2020 X ray : Foot, right 3V 02/17/2020 Insurance Providers Payer Name Payer Address Payer Phone Subscriber Number Group Number Insured Name Patient Relationship to Insured Coverage Start Date Coverage End Date [facility] [address] [place] [address] [phone] [id number] Erika Reyes Self - patient is the insured Medical (General) History Medical History History ICD Code Arthritis Back,Hip,and Knee pain Gall bladder problems High blood pressure Osteoporosis Psoriasis/eczema raynauds disease Reflux ( GERD) Sciatica chronic sinusitis Measles Chicken pox Surgical History Surgery Date(Month/Year) gall bladder 03/2015 Acid Reflux surgery
--- OUTSIDE RECORDS SUMMARY | 2025-03-12 09:15 | XMS_ITS | Patient Health Record ---
Author Organization [facility] Address [address] [place] [address] Care Team Providers Care Building Construction Superintendent Name Role Phone Anthony JAUREGUI, Lizzy Primary Care Provider Enoc Chow [phone] Allergies Allergen (clinical drug ingredient) Drug/Non Drug [...] Activ e Sulfa Unknown Drug Allergy Active Reason For Referral No [...] Problem Status W/U Status Risk Notes Problem 286376448 Encounter for screening for malignant neoplasm of colon (Z12.11) Active confirmed Problem History of adenomatous polyp of colon (270879363) History of adenomatous polyp of colon (Z86.010) Active confirmed Problem Diverticular disease of colon (943935784) Diverticulosis of large intestine without perforation or abscess without bleeding (K57.30) Active confirmed Problem 024759912 Irritable bowel syndrome with diarrhea (K58.0) Active confirmed Problem 141174989 Gastroesophageal reflux disease without esophagitis (K21.9) Active confirmed Plan Of Treatment Future Test Test Name Order Date UPPER GI ENDOSCOPY 02/11/2013 COLONOSCOPY 03/20/2018 COLONOSCOPY 09/17/2023 Insurance Providers Payer Name Payer Address Payer Phone Subscriber Number Group Number Insured Name Patient Relationship to Insured Coverage Start Date Coverage End Date MEDICARE OF [place] [address] [facility] [place] [address] [id number] ALEJANDRO DOHERTY Self - patient is the insured [facility] [address] [place], [place] [id number] [phone] [id number] ALEJANDRO DOHERTY Self - patient is the insured Medical (General) History Medical History History ICD Code GERD WITH ASSOCIATED RIVERA 'S ESOPHAGUS- EGD in 11/2007 and in 02/2013-no Rivera's seen--no esophagitis, minimal HH HTN Denies [place],DM,CVA,Lung disease,renal dise ase Neg. colonoscopy in 11/2007 [...]
[2025-03-21 13:53] LABS: Saliva Cortisol <0.03 mcg/dL
== END 2025-03-12 09:03 | disposition home or self-care (01) ==
LOC: HO.LNP 09:02
PROVIDERS: Visit Provider Internal Medicine Endocrinology, Diabetes & Metabolism
DX: D35.02 Benign neoplasm of left adrenal gland (principal)
CPT/HCPCS: 82530

== ENCOUNTER 2025-03-24 10:45 | Outpatient (AMB) | payer BC, SELFPAY ==
--- NOTE | 2025-03-24 10:51 | A.OFFVIS_ITS ---
Vital Signs 03/24/25 10:52 Height 5 ft 3.21 in Weight 194 lb 10.691 oz BMI 34.3 BP 130/88 Blood Pressure Location Rt brachial Position Sitting Pulse 67 Pulse Source Pulse Oximeter Pulse Oximetry (%) 96 Oxygen Delivery Method Room Air Intake Visit Reasons: f/u osteoporosis/adrenal mass Intake Note: Patient present today for Osteoporosis and Adrenal Mass follow up. Candy Starch Mold Printer Required: No Accompanied by: Self / Same As Patient Allergies morphine (MORPHINE) Allergy (Intermediate, Verified 03/24/25 10:52) HIVES, itchy Sulfa (Sulfonamide Antibiotics) (SULFA (SULFONAMIDE ANTIBIOTICS)) Allergy (Intermediate, Verified 03/24/25 10:52) HIVES oxycodone (From PERCODAN) Adverse Reaction (Severe, Verified 03/24/25 10:52) DIAPHORESIS, PASSED OUT chantix Adverse Reaction (Unknown, Verified 03/24/25 10:52) weird drreams nausea adhesive tape Adverse Reaction (Verified 03/24/25 10:52) skin tear Medication List - Last Reconciled 03/24/25 by Enoc Alcantar MD azelastine 2 sprays intranasal BID calcium carbonate 300 mg PO DAILY cholecalciferol (vitamin D3) (Vitamin D3) 25 mcg PO DAILY lisinopril 10 mg PO DAILY magnesium 200 mg PO DAILY metoprolol succinate ER 25 mg PO BEDTIME vitamin B complex (B Complex-Vitamin B12 tablet) 1 tab PO DAILY HPI Comments Details: 64 yo female , today for follow-up visit, for evaluation of osteoporosis. and adrnal mass She has past medical history of lower back pain, vitamin-D deficiency, Pre diabetes, Depression, obesity. She denies prior fractures, positive GERD not on PPIs, positive FH of osteoporosis in her mother, she denies nephrolithiasis, she denies steroids used, positive smoker, she quit on February 2019. She denies anti seizures medications. She was on PPIs for a long period of time but she has not been on PPIs for maybe 20 years. She has negative History of head or neck irradiation. She has been taking alendronate 70 mg once a week with no problems since last visit. She has a good method of administration she is 100% adherent to therapy. Calcium intake: Calcium citrate 600 plus vitamin-D 800 twice a day. She is still not able to exercise due to leg pain. She is still limping. 04/07/19 dexa scan AP SPINE L1-L4: BMD 1.029 g/cm2, Z-score -0.3, T-score -1.3, osteopenia. LEFT FEMUR, NECK: BMD 0.685 g/cm2, Z-score -1.5, T-score -2.5, osteoporosis. LEFT FEMUR, TOTAL: BMD 0.753 g/cm2, Z-score -1.3, T-score -2.0, osteopenia. AP SPINE L1-L4: Current: BMD 1.048 g/cm2, Z-score -0.2, T-score -1.1, osteopenia, 1.8% increase from baseline (<5% change is not significant). Baseline: BMD 1.029 g/cm2. LEFT FEMUR, NECK: Current: BMD 0.723 g/cm2, Z-score -1.3, T-score -2.3, osteopenia. Baseline: BMD 0.685 g/cm2. LEFT FEMUR, TOTAL: Current: BMD 0.805 g/cm2, Z-score -0.9, T-score -1.6, osteopenia, 6.9% increase from baseline (<5% corona 03/31/2019 Hemoglobin 13.9 grams/deciliter Hematocrit 41.1% Creatinine 0.80 mg/dL GFR more than 60 mL/minute Potassium 4.2 millimole per L Sodium 144 millimole per L Calcium 9.1 mg/dL Albumin 4.4 g/dL Alkaline phosphatase 82 units/liter Vitamin-D 16.7 ng/dL TSH 1.20 mIU/mL \ 04/03/2019 There is a 1 cm low-attenuation left adrenal lesion axial image 51 series 2. Hounsfield units measure -30. This is stable from previous exam from 2013 and consistent with a benign lipid rich adenoma. Laboratory Tests 02/19/20 11/07/20 11/07/20 08:05 08:30 09:25 Sodium 142 Potassium 4.2 Creatinine 0.81 Estimated GFR > 60 Fasting Glucose 99 Calcium 9.0 Alkaline Phosphatase 75 Albumin 4.2 N-Telopeptide X-linked 13 25-OH Vitamin D Total 53.4 Cortisol 1.8 ACTH <5 L Dexamethasone SEE NOTE Laboratory Tests 03/31/19 07/02/19 02/03/20 09:18 12:40 09:00 Creatinine 0.76 Est GFR (Non-Af Amer) > 60 Calcium 9.0 D Alkaline Phosphatase 82 Total Protein 6.6 Albumin 4.2 N-Telopeptide X-linked 25-OH Vitamin D Total 29.4 TSH 3rd Generation 1.20 PTH Intact 38 Cortisol ACTH 02/19/20 02/19/20 07:53 08:05 Creatinine Est GFR (Non-Af Amer) Calcium Alkaline Phosphatase Total Protein Albumin N-Telopeptide X-linked 23 25-OH Vitamin D Total TSH 3rd Generation PTH Intact Cortisol 1.8 ACTH <5 L Laboratory Tests 07/02/19 07/02/19 02/03/20 12:40 12:40 09:00 Random Glucose 99 Fasting Glucose 93 Estimat Average Glucose 111 Hemoglobin A1c 5.5 No sx of Dionisio's or pheo . No fx since last visit . Recent midnight salivary cortisol was normal. The patient is a 64-year-old female presenting for follow-up on adrenal lesion and osteoporosis management. The adrenal lesion has been monitored for several years and appears benign, with no need for further re-evaluation at this time. Previous salivary cortisol tests, including midnight salivary cortisol, have returned normal results, indicating no current symptoms of Dionisio's syndrome. The patient has a history of osteoporosis and is currently taking calcium and vitamin D supplements. She previously took alendronate but is not currently on this medication. A bone density test was not conducted last year due to insurance issues, but a new test is planned to assess the current status. The patient reports well-controlled hypertension with current medication. She experiences daily lumbar pain, for which she recently received a lumbar injection. [facility] Medical History Increased endometrial stripe thickness Cervical cancer screening declined Allergic rhinitis Bilateral ankle pain History of ETT HTN (hypertension) Osteopenia Arthritis Hx of osteoporosis Bilateral temporomandibular joint disorder Dysfunction of left eustachian tube Intermittent lightheadedness Tinnitus of left ear Maxillary sinusitis Chronic pain in left foot External hemorrhoids Capsulitis of left foot Corrigan's neuroma of left foot Obesity (BMI 30-39.9) Vitamin D deficiency IFG (impaired fasting glucose) Adenoma of left adrenal gland Degenerative disc disease Barretts esophagus Lung nodule < 6cm on CT GERD (gastroesophageal reflux disease) IBS (irritable bowel syndrome) Essential hypertension Surgical History History of esophagogastroduodenoscopy (EGD) H/O colonoscopy Hx of foot surgery History of repair of hiatal hernia History of laparoscopic cholecystectomy History of sinus surgery History of excision of pilonidal cyst History of left knee surgery Abdominal hernia Family History Father No problems noted. Mother HTN (hypertension) History of cataract Maternal Grandmother Cervical cancer Maternal Grandfather History of heart attack Brother No problems noted. Brother No problems noted. Brother No problems noted. Sister No problems noted. Other Mental health disorder Substance use disorder Social History Housing: House Patient Tobacco Use Status: Former Tobacco user Years Smoked: 40 years e-Cigarette/Vaping Use: Never Used Current occupational status: unemployed Cognitive needs: No Hearing needs: No Vision needs: Yes Female Reproductive History Menstrual Age of Menarche: 9 Physical Exam Vital Signs: Last Vital Signs Pulse 67 03/24/25 10:52 BP 130/88 03/24/25 10:52 Pulse Ox 96 03/24/25 10:52 Oxygen Delivery Method Room Air 03/24/25 10:52 BMI result Body Mass Index 34.3 Assessment & Plan Assessment & Plan (1) Adenoma of left adrenal gland: Comment: 04/03/2019 There is a 1 cm low-attenuation left adrenal lesion axial image 51 series 2 Hounsfield units measure -30. This is stable from previous exam from 2013 and consistent with a benign lipid rich adenoma. Code(s): D35.02 - Benign neoplasm of left adrenal gland Category: Medical Plan: History of left adrenal adenoma a very low-density with imaging consistent with a benign adenoma. Workup for secretion was negative except for a mildly elevated cortisol after dexamethasone suppression. Normal midnight salivary cortisol has ruled out [place] syndrome Plan is for continued observation. At this point, no need for any further endocrine follow up or workup from adrenal standpoint (2) Osteoporosis: Code(s): M81.0 - Age-related osteoporosis without current pathological fracture Category: Medical Qualifiers: Osteoporosis type: age-related Presence of current pathological fracture: without current pathological fracture Qualified Code(s): M81.0 - Age- related osteoporosis without current pathological fracture Plan: This is a 63-year-old white female with a history of osteoporosis currently not on alendronate, calcium and vitamin-D with recent improvement in DEXA bone density showing low bone mass. Would continue with calcium and vitamin-D supplementation and we will recheck DEXA. If DEXA remained stable, patient may be discharged to primary care provider next visit. (3) Hx of osteoporosis: Code(s): Z87.39 - Personal history of other diseases of the musculoskeletal system and connective tissue Category: Medical Plan: Not addressed Orders: Orders XR DEXA axial skeleton 1 Month Z87.39 - Personal history of other diseases of the musculoskeletal system and connective tissue Coding Level of Care Code Est Pt Level 3 (09383) Diagnoses Adenoma of left adrenal gland D35.02 Age-related osteoporosis without current pathological fracture M81.0 Osteoporosis type: age-related Presence of current pathological fracture: without current pathological fracture Hx of osteoporosis Z87.39
[2025-03-24 10:52] VITALS: BP 130/88; PULSE 67; O2SAT 96; BMI 34.3
--- OUTSIDE RECORDS SUMMARY | 2025-03-24 12:29 | XMS_ITS | Clinical Summary ---
Author Organization [facility] Address [address] [place] [address] Care Team Providers Care Clarifier Operator Name Role Phone Unavailable Primary Care [...] Bone Density Screening 2023 Falls Prevention 2023 [id number] ( season) 2024 021, 10/31/2020 Alcohol and Drug Screen 07/22/2024 Depression Annual Screen 07/22/2024 Imm-Influenza (#1) 2025 04/18/2020, 1 , 05/06/2018, Additional history exists Imm-DTaP/Tdap/Td (2 - Td or Tdap) 05/08/2029 019 Imm-Zoster, Recombinant Completed 06/17/2020, 04/18 Insurance [place] [employer]/[facility]
== END 2025-03-24 11:09 | disposition home or self-care (01) ==
LOC: HO.ENCR 10:45
PROVIDERS: PCP Internal Medicine; Visit Provider Internal Medicine Endocrinology, Diabetes & Metabolism
DX: D35.02 Benign neoplasm of left adrenal gland (principal); M81.0 Age-related osteoporosis without current pathological fracture; Z87.39 Personal history of other diseases of the musculoskeletal system and connective tissue
CPT/HCPCS: 99213

== ENCOUNTER 2025-06-01 11:05 | Outpatient (REF) | payer MEDICARE, BC, SELFPAY ==
--- OUTSIDE RECORDS SUMMARY | 2023-12-06 06:30 | XMS_ITS ---
Author Organization [facility] Address [address] [place] [address] Care Team Providers Care [employer] Name Role Phone Anthony JAUREGUI, Lizzy Primary Care Provider Enoc Chow [phone] REASON FOR VISIT screening,hx polyps Problems Problem Type SNOMED Code ICD Code Onset Dates Problem Status W/U Status Risk Notes Problem Diverticular disease of colon (553855244) Diverticulosis of large intestine without perforation or abscess without bleeding (K57.30) Active confirmed Encounters Encounter Location Date Provider Diagnosis [facility] Outpatient [address] [place] [address] [phone] 12/06/2023 Enoc Gates Encounter for scre ening colonoscopy Z12.11 ; Colon polyps K63.5 ; Diverticulosis of large intestine without perforation or abscess without bleeding K57.30 and Other hemorrhoids K64.8 Assessments Encounter Date Diagnosis (ICD Code) Assessment Notes Treatment Notes Treatment Clinical Notes Section Notes 12/06/2023 Encounter for screening colonoscopy (ICD-10 - Z12.11) 12/06/2023 Colon polyps (ICD-10 - K63.5) 12/06/2023 Diverticulosis of large intestine without perforation or abscess without bleeding (ICD-10 - K57.30) 12/06/2023 Other hemorrhoids (ICD-10 - K64.8) Plan Of Treatment No Information Progress Notes * ALEJANDRO INGRAM ADOB: (64 yo F)Acc No.[id number]:12/06/2023 COLON WITH MAC Patient: ALEJANDRO WEEKS Provider: Rufus Gates MD :1960 A ge:63 Y S ex:Female Date:12/06/2023 Address:[address] [place] [address] Pcp:Lizzy Cruz MD Subjective: * Chief Complaints: * 1 . Screening,hx polyps. * Medical History: Objective: * Vitals: Assessment: * Assessment: 1. E ncounter for screening colonoscopy - Z12.11 (Primary) 2 . C olon polyps - K63.5 3 . D iverticulosis of large intestine without perforation or abscess without bleeding - K57.30 4 . O ther hemorrhoids - K64.8 Plan: * Treatment: * Procedure Codes: 4 5380 COLONOSCOPY AND BIOPSY, Modifiers: PT , 0529F INTRVL 3+YRS PTS CLNSCP DOCD, 0528F RCMND FLW-UP 10 YRS DOCD, Modifiers: 1P * * The named appointment provid er may or may not be the originator of this progress note, and it is not deemed complete until electronically signed by the appointment provider. Sign off status: Pending * Provider: Rufus Gates MD Date: 0 12/06/2023 Generated for Kasi garcia/Lilly/Reneeitting on: 08/01/2024 01:15 PM EST
--- NOTE | ~2025-06-01 | MM_ITS ---
EXAMINATION: DXA BONE DENSITY AXIAL HISTORY: Z87.39 - Personal history of other diseases of the musculoskeletal syste... TECHNIQUE: Nativis Dual energy absorptiometry (DEXA) of the lumbar spine, total left hip, and femoral neck was performed. COMPARISON: Comparison is made with the prior examinations was recent dated April 2023. FINDINGS: The bone mineral density of the lumbar spine is 1.045 g/cm2, corresponding to a T-score of -1.1, and a Z-score of -0.3. This is indicative of osteopenia. This represents a BMD change of -0.6%% compared to the prior exam. This is not statistically significant. The bone mineral density of the left total hip is 0.815 g/cm2, corresponding to a T-score of -1.5, and a Z-score of -0.8. This is indicative of osteopenia. This represents a BMD change of 2%% compared to the prior exam. This is not statistically significant. The bone mineral density of the left femoral neck is 0.711 g/cm2, corresponding to a T-score of -2.4, and a Z-score of 1.3. This is indicative of osteopenia. This represents a BMD change of -0.6% compared to the prior exam. This is not statistically significant. FRACTURE RISK: The FRAX index suggests a ten year probability of major osteoporotic fracture of 12.2%, and of hip fracture 2.4%. MM/XR DEXA axial skeleton IMPRESSION: Based on bone mineral density, and according to World Health Organization (WHO) criteria, the diagnosis is consistent with osteopenia based on lowest T score of -2.4 in the left femoral neck.There is no significant change from most recent exam from April 2023. Statistically, 68% of repeat scans fall within 1 SD (+/- 0.010 g/cm2 for AP spine L1-L4) and 1 SD (+/- 0.012 g/cm2 for femur total) FRAX is a trademark of the [employer] [place] for Met[employer] Bone Disease, a World Health Organization (WHO) Collaborating Center. Electronically signed by: Anna Pike MD 06/01/2025 01:53 PM EST RP
--- OUTSIDE RECORDS SUMMARY | 2025-06-01 13:15 | XMS_ITS | Patient Health Record ---
Author Organization [facility] Address [address] [place] [address] Care Team Providers Care Bicycle Repairman Name Role Phone Anthony JAUREGUI, Lizzy Primary Care Provider Enoc Chow [phone] Allergies Allergen (clinical drug ingredient) Drug/Non Drug [...] Date Status Metoprolol Succinate ER 25 MG Oral; Duration: 90 Active Lisinopril 10 MG TAKE 1 TABLET BY NORAH TH EVERY DAY Oral; Duration: 90 Active Calcium Active Magnesium Active Vitamin D3 Active Vitamin B Complex Ac tive Dicyclomine HCl 10 MG 1 or 2 capsules Or ally Use 15 to 30 minutes before a meal tp prevent any symptoms such as abdominal cramps or diarrhea, or use every 6 hours as needed for abdominal cramps or discomfort; Duration: 30 day(s) 09/18/2023 Active Social History Tobacco [...] Problem Status W/U Status Risk Notes Problem Screening for malignant neoplasm of colon (912595924) Encounter for screening for malignant neoplasm of colon (Z12.11) Active confirmed Problem History of adenomatous polyp of colon (012489244) History of adenomatous polyp of colon (Z86.010) Active confirmed Problem Diverticular disease of colon (865945391) Diverticulosis of large intestine without perforation or abscess without bleeding (K57.30) Active confirmed Problem Irritable bowel syndrome with diarrhea (374346286) Irritable bowel syndrome with diarrhea (K58.0) Active confirmed Problem Gastroesophageal reflux disease without esophagitis (974891074) Gastroesophageal reflux disease without esophagitis (K21.9) Active confirmed Plan Of Treatment Future Test Test Name Order Date UPPER GI ENDOSCOPY 02/11/2013 COLONOSCOPY 03/20/2018 COLONOSCOPY 09/17/2023 Insurance Providers Payer Name Payer Address Payer Phone Subscriber Number Group Number Insured Name Patient Relationship to Insured Coverage Start Date Coverage End Date MEDICARE OF [place] [address] [facility] [place] [address] [id number] ALEJANDRO DOHERTY Self - patient is the insured [facility] [address] [place], [place] [id number] [phone] [id number] ALEJANDRO DOHERTY Self - patient is the insured Medical (General) History Medical History History ICD Code GERD WITH ASSOCIATED RIVERA 'S ESOPHAGUS- EGD in 11/2007 and in 02/2013-no Rivera's seen--no esophagitis, minimal HH HTN Denies [place],DM,CVA,Lung disease,renal dise ase Neg. colonoscopy in 11/2007 [...]
--- OUTSIDE RECORDS SUMMARY | 2025-06-01 13:15 | XMS_ITS | Patient Health Record ---
Author Organization [facility] Address [address] [place] [address] Care Team Providers Care Optimization Manager Name Role Phone Anthony JAUREGUI, Lizzy Turcios Primary Care Provider Un available Farzaneh Villaseñor Unavailable [phone] Allergies Allergen (clinical drug ingredient) Drug/Non Drug [...] Problem Acquired hammer toe of left foot (853992669271 9103) Hammer toe of left foot (M20.42) Active confirmed Problem Plantar nerve lesion (534349155) Neuroma of second interspace of right foot (G57.61) Active confirmed Problem Plantar nerve lesion (769912746) Neuroma of second interspace of left foot [...] Insured Coverage Start Date Coverage End Date [facility] [address] [place] [address] [phone] [id number] Erika Reyes Self - patient is the insured Medical (General) History Medical History History ICD Code Arthritis Back,Hip,and Knee pain Gall bladder problems High blood pressure Osteoporosis Psoriasis/eczema raynauds disease Reflux ( GERD) Sciatica chronic sinusitis Measles Chicken pox Surgical History Surgery Date(Month/Year) gall bladder 03/2015 Acid Reflux surgery
--- OUTSIDE RECORDS SUMMARY | 2025-06-01 13:15 | XMS_ITS | Clinical Summary ---
Author Organization [facility] Address [address] [place] [address] Care Team Providers Care Project Design Engineer Name Role Phone Unavailable Primary Care Provider [...] Bone Density Screening 2023 Falls Prevention 2023 Alcohol and Drug Screen 07/22/2024 Depression Annual Screen 07/22/2024 [id number] ( season) 2025 021, 10/31/2020 Imm-Influenza (#1) 2025 04/18/2020, 1 , 05/06/2018, Additional history exists Imm-DTaP/Tdap/Td (2 - Td or Tdap) 05/08/2029 019 Imm-Zoster, Recombinant Completed 06/17/2020, 04/18 Insurance [facility]
== END 2025-06-01 11:06 | disposition home or self-care (01) ==
LOC: HO.MAMMO 11:05
PROVIDERS: PCP Internal Medicine; Visit Provider Internal Medicine Endocrinology, Diabetes & Metabolism
DX: Z13.820 Encounter for screening for osteoporosis (principal); Z87.39 Personal history of other diseases of the musculoskeletal system and connective tissue; M81.0 Age-related osteoporosis without current pathological fracture
CPT/HCPCS: 77080

== ENCOUNTER → 2025-06-01 11:30 | Outpatient (BNV) | payer MEDICARE, BC, SELFPAY | PROVIDERS: PCP Internal Medicine; Visit Provider Radiology Diagnostic Radiology | DX: E28.39 Other primary ovarian failure (principal) | CPT/HCPCS: 77080 ==